=== PATIENT | male | born 1970 | race Caucasian/White ===

== ENCOUNTER 2016-08-03 20:46 | Emergency (ER) | payer MEDICAID ==
[~2016-08-03] VITALS: Ht 172.7 cm; Wt 181.4 kg
[2016-08-03 22:42] LABS: Basophils # (auto) 0 uL; Basophils % (auto) 0.3 % (0.0-2.0); DEFINITIVE VIEW TRANSMISSION; Eosinophils # (auto) 0 uL; Eosinophils % (auto) 0.3 % (0.0-7.0); Hematocrit 45.4 % (41.0-53.0); Hemoglobin 13.9 g/dL (13.5-17.5); Lymphocytes # (auto) 1.6 uL; Mean Corpuscular Hemoglobin 21.5 pg (28.0-32.0); Mean Corpuscular Hgb Conc. 30.5 g/dL (32.0-36.0); Mean Corpuscular Volume 70.5 fL (80.0-100.0); Mean Platelet Volume 10.8 fL (7.4-10.4); Monocytes % (auto) 9.5 % (0.0-12.0); Neutrophils # (auto) 7.9 uL; Neutrophils % (auto) 74.9 % (37.0-80.0); Platelet Count (auto) 340 10^3/uL (140-450); Red Cell Distribution Width 18.9 % (11.6-16.0); White Blood Cell 10.6 10^3/uL (4.4-10.8)
[2016-08-03 22:58] LABS: Albumin 3.2 g/dL (3.4-5.0); Alkaline Phosphatase 153 U/L (45-117); Anion Gap 10 (5-15); Aspartate Aminotransferase < 3 U/L (15-37); BUN/Creatinine Ratio 15.7; Bilirubin, Total 0.3 mg/dL (0.2-1.0); Blood Urea Nitrogen 11 mg/dL (7-18); Calcium 8.5 mg/dL (8.5-10.1); Carbon Dioxide 25 mmol/L (21-32); Chloride 109 mmol/L (98-107); GFR African American 156 mL/min; GFR Non-African American 129 mL/min; Glucose 103 mg/dL (74-106); Magnesium 2.2 mg/dL (1.6-2.6); Potassium 3.5 mmol/L (3.5-5.1); Sodium 144 mmol/L (136-145); Total Protein 7.8 g/dL (6.4-8.2)
[2016-08-03 23:01] LABS: INR 1.05 (0.9-1.15); Partial Thromboplastin Time 27.8 sec (22.64-33.71); Prothrombin Time 10.8 sec (9.37-12.3)
[2016-08-03 23:11] LABS: B-Type Natriuretic Peptide 7.95 pg/mL (0-100)
[2016-08-03 23:12] LABS: Temperature: 22.3 C (20.0-25.0)
[2016-08-03 23:23] LABS: Anisocytosis Slight; Platelet Estimate Adequate
[2016-08-03 23:24] LABS: Hypochromia Slight
[2016-08-04] MEDS ORDERED: HYDROcodone-ACET 10/325MG TAB PO ONE (00:30)
[2016-08-04] MEDS ORDERED: LEVOFLOXACIN 500 MG TAB PO ONE (00:30)
[2016-08-04] MEDS ORDERED: traMADol HCL 50 MG TAB PO ONE (01:00)
[2016-08-04 02:15] VITALS: BP 128/84
== END 2016-08-04 02:20 | disposition home or self-care (01) ==
LOC: ER 21:07
DX: R07.89 Other chest pain (principal); J06.9 Acute upper respiratory infection, unspecified; L89.329 Pressure ulcer of left buttock, unspecified stage; L89.319 Pressure ulcer of right buttock, unspecified stage; E11.9 Type 2 diabetes mellitus without complications; I10 Essential (primary) hypertension; F17.210 Nicotine dependence, cigarettes, uncomplicated; Z88.2 Allergy status to sulfonamides; Z88.6 Allergy status to analgesic agent; Z88.8 Allergy status to other drugs, medicaments and biological substances; Z79.1 Long term (current) use of non-steroidal anti-inflammatories (NSAID)
CPT/HCPCS: 36415; 71010; 80053; 83735; 83880; 84484; 85025; 85379; 85610; 85730; 87040; 87070; 87077; 87186; 93005; 94761

== ENCOUNTER 2016-12-26 07:32 | Inpatient (IN) | payer MEDICAID ==
[~2016-12-26] VITALS: Ht 172.7 cm; Wt 156.5 kg
[2016-12-26 08:50] LABS: Urine Bilirubin Negative (Negative); Urine Color Yellow (Yellow); Urine Glucose Normal (Normal); Urine Ketone Negative (Negative); Urine Mucus FEW (None Seen); Urine RBC 22 /hpf (0 - 3); Urine Squamous Epithelial Cell MOD /hpf (<5); Urine Urobilinogen Normal (Negative); Urine WBC Clumps PRESENT /hpf (None Seen)
[2016-12-26 08:51] LABS: Urine Blood 1+ /uL (Negative); Urine Nitrite POSITIVE (Negative)
[2016-12-26] MEDS ORDERED: SODIUM CHLORIDE 0.9% 1,000 ML IV ONE ×2 (09:06)
[2016-12-26] MEDS ORDERED: ONDANSETRON HCL 4 MG/2 ML VIAL IV ONE (09:15)
[2016-12-26] MEDS ORDERED: MORPHINE SULFATE 4 MG/ML SYRG IV ONE (09:15)
[2016-12-26] MEDS ORDERED: LEVOFLOXACIN 750MG 150 ML IV ONE (09:15)
[2016-12-26 09:22] LABS: Basophils # (auto) 0 uL; Basophils % (auto) 0.3 % (0.0-2.0); DEFINITIVE VIEW TRANSMISSION; Eosinophils # (auto) 0 uL; Eosinophils % (auto) 0.1 % (0.0-7.0); Hemoglobin 14.4 g/dL (13.5-17.5); Lymphocytes % (auto) 7.4 % (10.0-50.0); Mean Corpuscular Hemoglobin 21.3 pg (28.0-32.0); Mean Corpuscular Hgb Conc. 31.4 g/dL (32.0-36.0); Mean Corpuscular Volume 67.8 fL (80.0-100.0); Mean Platelet Volume 9.6 fL (7.4-10.4); Monocytes # (auto) 0.7 uL; Monocytes % (auto) 5.2 % (0.0-12.0); Neutrophils # (auto) 11.8 uL; Platelet Count (auto) 300 10^3/uL (140-450); Red Cell Distribution Width 19.6 % (11.6-16.0); White Blood Cell 13.6 10^3/uL (4.4-10.8)
[2016-12-26 09:39] LABS: Albumin 3.3 g/dL (3.4-5.0); Calcium 8.5 mg/dL (8.5-10.1); Potassium 4.3 mmol/L (3.5-5.1)
[2016-12-26 09:43] LABS: Bilirubin, Total 0.3 mg/dL (0.2-1.0); Total Protein 7.9 g/dL (6.4-8.2)
[2016-12-26 10:04] LABS: Platelet Estimate Adequate
[2016-12-26 10:05] LABS: Anisocytosis Slight; Hypochromia Slight
[2016-12-26 10:06] LABS: Microcytosis Slight
[2016-12-26] MEDS ORDERED: HYDROmorphone HCL 2 MG/ML VL IV ONE (12:00)
[2016-12-26] MEDS ORDERED: GASTROGRAFIN 120 ML SOL ONE (12:19)
[2016-12-26] MEDS ORDERED: FAMOTIDINE (10MG/ML) 2ML VL IV ONE (13:45)
[2016-12-26] MEDS ORDERED: ONDANSETRON HCL 4 MG/2 ML VIAL IV PRN (13:45)
[2016-12-26] MEDS ORDERED: metroNIDAZOLE 500MG/100ML 100 ML IV ONE (13:45)
[2016-12-26] MEDS: SODIUM CHLORIDE 0.9% 1,000 ML IV SCH ×2 (13:57→22:02)
[2016-12-26 15:13] LABS: INR 1.02 (0.9-1.15); Prothrombin Time 11.1 sec (9.37-12.3)
[2016-12-26] MEDS: HYDROmorphone HCL 2 MG/ML VL IV PRN ×2 (16:33→20:36)
[2016-12-26 17:22] VITALS: BP 134/79
[2016-12-26 18:09] VITALS: BP 134/79
[2016-12-26 20:00] VITALS: BP 124/63
[2016-12-26] MEDS: metroNIDAZOLE 500MG/100ML 100 ML IV SCH (20:17)
[2016-12-26 22:00] VITALS: BP 124/63
[2016-12-27] VITALS (7 sets, daily range): BP systolic 116–151; BP diastolic 64–79
[2016-12-27] MEDS: metroNIDAZOLE 500MG/100ML 100 ML IV SCH ×4 (02:03→20:41)
[2016-12-27] MEDS: HYDROmorphone HCL 2 MG/ML VL IV PRN ×5 (03:38→22:30)
[2016-12-27] MEDS ORDERED: HYDR2TAB29 PO (03:43)
[2016-12-27] MEDS ORDERED: TIZA2TAB3 PO (03:43)
[2016-12-27] MEDS ORDERED: OXYC15TA77 PO (03:43)
[2016-12-27] MEDS ORDERED: ESOM40CA39 PO (03:44)
[2016-12-27] MEDS: SODIUM CHLORIDE 0.9% 1,000 ML IV SCH ×2 (06:22→14:32)
[2016-12-27] MEDS: FAMOTIDINE (10MG/ML) 2ML VL IV SCH (09:01)
[2016-12-27 10:39] LABS: Basophils # (auto) 0 uL; Basophils % (auto) 0.4 % (0.0-2.0); DEFINITIVE VIEW TRANSMISSION; Eosinophils # (auto) 0.1 uL; Eosinophils % (auto) 1.4 % (0.0-7.0); Hemoglobin 12.9 g/dL (13.5-17.5); Lymphocytes # (auto) 1.4 uL; Lymphocytes % (auto) 21.9 % (10.0-50.0); Mean Corpuscular Hemoglobin 21.1 pg (28.0-32.0); Mean Corpuscular Hgb Conc. 30.7 g/dL (32.0-36.0); Mean Corpuscular Volume 68.6 fL (80.0-100.0); Mean Platelet Volume 11.2 fL (7.4-10.4); Monocytes # (auto) 0.5 uL; Monocytes % (auto) 7.8 % (0.0-12.0); Neutrophils # (auto) 4.4 uL; Neutrophils % (auto) 68.5 % (37.0-80.0); Platelet Count (auto) 300 10^3/uL (140-450); Red Cell Distribution Width 18.8 % (11.6-16.0); White Blood Cell 6.4 10^3/uL (4.4-10.8)
[2016-12-27 11:04] LABS: Platelet Estimate Adequate
[2016-12-27 11:05] LABS: Anisocytosis Slight; Hypochromia Moderate; Microcytosis Slight
[2016-12-27] MEDS: LEVOFLOXACIN 500MG 100 ML IV SCH (11:16)
[2016-12-27 11:22] LABS: Albumin 2.9 g/dL (3.4-5.0); BUN/Creatinine Ratio 23.8; Bilirubin, Total 0.5 mg/dL (0.2-1.0); Calcium 7.8 mg/dL (8.5-10.1); Potassium 3.9 mmol/L (3.5-5.1); Total Protein 6.6 g/dL (6.4-8.2)
[2016-12-28] MEDS: metroNIDAZOLE 500MG/100ML 100 ML IV SCH ×2 (02:25→08:07)
[2016-12-28] MEDS: SODIUM CHLORIDE 0.9% 1,000 ML IV SCH ×3 (02:25→15:42)
[2016-12-28] MEDS: HYDROmorphone HCL 2 MG/ML VL IV PRN ×5 (02:39→21:30)
[2016-12-28 05:22] VITALS: BP 127/75
[2016-12-28 07:03] LABS: Basophils # (auto) 0 uL; Basophils % (auto) 0.5 % (0.0-2.0); DEFINITIVE VIEW TRANSMISSION; Eosinophils # (auto) 0.1 uL; Eosinophils % (auto) 1.8 % (0.0-7.0); Hematocrit 41.5 % (41.0-53.0); Hemoglobin 12.5 g/dL (13.5-17.5); Lymphocytes # (auto) 1.2 uL; Lymphocytes % (auto) 17.3 % (10.0-50.0); Mean Corpuscular Hemoglobin 20.8 pg (28.0-32.0); Mean Corpuscular Hgb Conc. 30.1 g/dL (32.0-36.0); Mean Platelet Volume 10.6 fL (7.4-10.4); Monocytes # (auto) 0.6 uL; Monocytes % (auto) 8.3 % (0.0-12.0); Neutrophils # (auto) 4.9 uL; Neutrophils % (auto) 72.1 % (37.0-80.0); Platelet Count (auto) 258 10^3/uL (140-450); Red Cell Distribution Width 19.1 % (11.6-16.0); White Blood Cell 6.8 10^3/uL (4.4-10.8)
[2016-12-28 07:48] LABS: BUN/Creatinine Ratio 26.3; Calcium 7.7 mg/dL (8.5-10.1); Potassium 3.6 mmol/L (3.5-5.1)
[2016-12-28 08:00] VITALS: BP 156/78
[2016-12-28 08:41] LABS: Anisocytosis Slight; Burr Cells FEW; Hypochromia Moderate; Microcytosis Marked; Ovalocytes FEW; Platelet Estimate Adequate
[2016-12-28 08:53] VITALS: BP 153/78
[2016-12-28] MEDS: LEVOFLOXACIN 500MG 100 ML IV SCH (10:33)
[2016-12-28] MEDS: FAMOTIDINE (10MG/ML) 2ML VL IV SCH (10:34)
[2016-12-28] MEDS: cefTRIAXone 1GM/50ML D5W 50 ML IV SCH (12:41)
[2016-12-28 13:00] VITALS: BP 140/78
[2016-12-28 17:00] VITALS: BP 131/76
[2016-12-28 22:00] VITALS: BP 138/70
[2016-12-29] MEDS: SODIUM CHLORIDE 0.9% 1,000 ML IV SCH ×2 (01:30→08:22)
[2016-12-29] MEDS: HYDROmorphone HCL 2 MG/ML VL IV PRN ×6 (01:30→22:34)
[2016-12-29 04:49] VITALS: BP 128/64
[2016-12-29 05:57] LABS: Basophils # (auto) 0 uL; Basophils % (auto) 0.4 % (0.0-2.0); DEFINITIVE VIEW TRANSMISSION; Eosinophils # (auto) 0.2 uL; Eosinophils % (auto) 2.7 % (0.0-7.0); Hematocrit 38.8 % (41.0-53.0); Hemoglobin 11.9 g/dL (13.5-17.5); Lymphocytes # (auto) 1.3 uL; Lymphocytes % (auto) 20.6 % (10.0-50.0); Mean Corpuscular Hgb Conc. 30.7 g/dL (32.0-36.0); Mean Corpuscular Volume 68.4 fL (80.0-100.0); Mean Platelet Volume 9.6 fL (7.4-10.4); Monocytes # (auto) 0.8 uL; Monocytes % (auto) 13.1 % (0.0-12.0); Neutrophils % (auto) 63.2 % (37.0-80.0); Platelet Count (auto) 231 10^3/uL (140-450); Red Cell Distribution Width 18.9 % (11.6-16.0); White Blood Cell 6.4 10^3/uL (4.4-10.8)
[2016-12-29 06:09] LABS: Potassium 3.3 mmol/L (3.5-5.1)
[2016-12-29 06:14] LABS: BUN/Creatinine Ratio 25.6; Calcium 7.3 mg/dL (8.5-10.1)
[2016-12-29 09:01] VITALS: BP 125/63
[2016-12-29] MEDS: FAMOTIDINE (10MG/ML) 2ML VL IV SCH (09:28)
[2016-12-29] MEDS: cefTRIAXone 1GM/50ML D5W 50 ML IV SCH (09:28)
[2016-12-29 12:35] VITALS: BP 128/76
[2016-12-29] MEDS: NITROFURANTOIN (MONO) 100 mg CAP PO SCH ×2 (16:53→22:16)
[2016-12-29 17:00] VITALS: BP 117/69
[2016-12-29 21:48] VITALS: BP 150/92
[2016-12-30 05:05] VITALS: BP 137/73
[2016-12-30] MEDS: HYDROmorphone HCL 2 MG/ML VL IV PRN ×4 (05:19→19:46)
[2016-12-30 09:00] VITALS: BP 128/68
[2016-12-30] MEDS: FAMOTIDINE (10MG/ML) 2ML VL IV SCH (09:21)
[2016-12-30] MEDS: NITROFURANTOIN (MONO) 100 mg CAP PO SCH ×2 (09:21→21:16)
[2016-12-30 13:00] VITALS: BP 132/70
[2016-12-30] MEDS: cefTRIAXone 1GM/50ML D5W 50 ML IV SCH (13:19)
[2016-12-30] MEDS: SODIUM CHLORIDE 0.9% 1,000 ML IV SCH (13:53)
[2016-12-30] MEDS ORDERED: NITR-48 PO (14:28)
[2016-12-30] MEDS ORDERED: CEFT1INJ6 IM (14:28)
[2016-12-30 15:15] VITALS: BP 128/68
[2016-12-30 16:58] VITALS: BP 147/99
[2016-12-30 22:25] VITALS: BP 151/83
[2016-12-31] MEDS: HYDROmorphone HCL 2 MG/ML VL IV PRN ×6 (00:06→20:43)
[2016-12-31] MEDS: SODIUM CHLORIDE 0.9% 1,000 ML IV SCH ×2 (03:02→16:22)
[2016-12-31 05:04] VITALS: BP 127/70
[2016-12-31 08:45] VITALS: BP 127/86
[2016-12-31] MEDS: FAMOTIDINE (10MG/ML) 2ML VL IV SCH (09:12)
[2016-12-31] MEDS: NITROFURANTOIN (MONO) 100 mg CAP PO SCH ×2 (09:12→23:02)
[2016-12-31] MEDS: cefTRIAXone 1GM/50ML D5W 50 ML IV SCH (11:24)
[2016-12-31 12:47] VITALS: BP 151/88
[2016-12-31 16:36] VITALS: BP 125/76
[2016-12-31 22:03] VITALS: BP 140/80
[2017-01-01] MEDS: HYDROmorphone HCL 2 MG/ML VL IV PRN ×3 (00:09→08:48)
[2017-01-01 04:45] VITALS: BP 119/88
[2017-01-01] MEDS: SODIUM CHLORIDE 0.9% 1,000 ML IV SCH (05:47)
[2017-01-01 08:06] VITALS: BP 134/71
[2017-01-01] MEDS: NITROFURANTOIN (MONO) 100 mg CAP PO SCH (09:25)
[2017-01-01] MEDS: FAMOTIDINE (10MG/ML) 2ML VL IV SCH (09:25)
[2017-01-01] MEDS: cefTRIAXone 1GM/50ML D5W 50 ML IV SCH (11:24)
[2017-01-01 12:48] VITALS: BP 130/73
== END 2017-01-01 12:55 | disposition home health service (06) | DRG 247 ==
LOC: EDBD 07:32 → ER 07:38 → OVERFLOW 07:39 → WEST WING 15:38
PROVIDERS: ADMIT Internal Medicine; ATTEND Nurse Practitioner Acute Care
DX: K56.60 Unspecified intestinal obstruction (principal); N39.0 Urinary tract infection, site not specified; I10 Essential (primary) hypertension; E11.9 Type 2 diabetes mellitus without complications; B95.2 Enterococcus as the cause of diseases classified elsewhere; Q05.9 Spina bifida, unspecified; E66.01 Morbid (severe) obesity due to excess calories; G89.29 Other chronic pain; B96.4 Proteus (mirabilis) (morganii) as the cause of diseases classified elsewhere; B96.89 Other specified bacterial agents as the cause of diseases classified elsewhere; K42.9 Umbilical hernia without obstruction or gangrene; F17.210 Nicotine dependence, cigarettes, uncomplicated; K43.5 Parastomal hernia without obstruction or gangrene; Z82.49 Family history of ischemic heart disease and other diseases of the circulatory system; Z89.511 Acquired absence of right leg below knee; Z89.512 Acquired absence of left leg below knee; Z93.3 Colostomy status; Z98.2 Presence of cerebrospinal fluid drainage device; Z93.2 Ileostomy status; Z68.43 Body mass index [BMI] 50.0-59.9, adult; Z88.6 Allergy status to analgesic agent; Z88.1 Allergy status to other antibiotic agents; Z88.5 Allergy status to narcotic agent; Z88.0 Allergy status to penicillin
CPT/HCPCS: 36415; 71010; 74176; 74250; 80048; 80053; 81001; 83605; 85025; 85610; 87040; 87086; 87088; 87186; 96361; 96365; 96367; 96375; J0696; J1956; J2405; J3490

== ENCOUNTER 2017-03-12 22:36 | Inpatient (IN) | payer MEDICAID ==
[~2017-03-12] VITALS: Ht 160 cm; Wt 160.8 kg
[~2017-03-12 22:36] MED LIST: CEFT1INJ6 IM; ESOM40CA39 PO; HYDR2TAB29 PO; NITR-48 PO; OXYC15TA77 PO; TIZA2TAB3 PO
[2017-03-12 23:31] LABS: Basophils # (auto) 0.1 uL; Basophils % (auto) 0.3 % (0.0-2.0); CONDITION Y; DEFINITIVE SEE PRINTOUT; Eosinophils # (auto) 0 uL; Eosinophils % (auto) 0.3 % (0.0-7.0); Hematocrit 45.1 % (41.0-53.0); Hemoglobin 13.8 g/dL (13.5-17.5); Lymphocytes # (auto) 1.3 uL; Lymphocytes % (auto) 8.6 % (10.0-50.0); Mean Corpuscular Hemoglobin 21.2 pg (28.0-32.0); Mean Corpuscular Hgb Conc. 30.6 g/dL (32.0-36.0); Mean Corpuscular Volume 69.3 fL (80.0-100.0); Mean Platelet Volume 9.2 fL (7.4-10.4); Monocytes # (auto) 1.4 uL; Neutrophils # (auto) 12.8 uL; Neutrophils % (auto) 81.8 % (37.0-80.0); Platelet Count (auto) 317 10^3/uL (140-450); White Blood Cell 15.6 10^3/uL (4.4-10.8)
[2017-03-12 23:48] LABS: Albumin 3.3 g/dL (3.4-5.0); BUN/Creatinine Ratio 17.7; Calcium 8.4 mg/dL (8.5-10.1); Potassium 3.7 mmol/L (3.5-5.1)
[2017-03-12 23:51] LABS: Bilirubin, Total 0.4 mg/dL (0.2-1.0); Total Protein 8.1 g/dL (6.4-8.2)
[2017-03-13] MEDS ORDERED: ALBUTEROL SULF 2.5 MG/0.5ML(0.5%) NEB SOLN NEB ONE
[2017-03-13] MEDS ORDERED: IPRATROPIUM BROM 0.5 MG/2.5ML INH SOL NEB ONE
[2017-03-13] MEDS ORDERED: ONDANSETRON HCL 4 MG/2 ML VIAL IV ONE
[2017-03-13 00:32] LABS: Magnesium 2.5 mg/dL (1.6-2.6)
[2017-03-13 00:40] LABS: Allen Test Modified; Base Excess 1.7 mmol/L (-2.0-2.0); Blood 02Sat 96.4 % (96-100); Blood COHb 5.5 % (0.5-1.5); Blood MetHb 0.3 % (0.0-1.5); HCO3 26.7 mmol/L (22-26.0); HHb 3.4 % (0.0-5.0); MODE NASAL CANNULA; O2Hb 90.8 % (94.0-97.0); PCO2 43.3 mmHg (35.0-45.0); PCO2(T) 43.3 mmHg (35.0-45.0); PO2 88.7 mmHg (80.0-100.0); PO2(T) 88.7 mmHg (80.0-100.0); Sample Type Arterial; pH 7.408 (7.350-7.450)
[2017-03-13 00:55] LABS: B-Type Natriuretic Peptide 7.1 pg/mL (0-100)
[2017-03-13 01:26] LABS: Platelet Estimate Adequate
[2017-03-13 01:27] LABS: Anisocytosis Moderate; Microcytosis Marked; Ovalocytes FEW
[2017-03-13 01:28] LABS: Hypersegmented Neutrophils Present
[2017-03-13 02:22] LABS: Urine Bilirubin Negative (Negative); Urine Blood 2+ /uL (Negative); Urine Color Yellow (Yellow); Urine Glucose Normal (Normal); Urine Ketone Negative (Negative); Urine Mucus FEW (None Seen); Urine Nitrite POSITIVE (Negative); Urine RBC 39 /hpf (0 - 3); Urine Squamous Epithelial Cell FEW /hpf (<5); Urine Urobilinogen Normal (Negative); Urine WBC Clumps PRESENT /hpf (None Seen); Urine pH 6.5 (5.0-8.0)
[2017-03-13] MEDS ORDERED: HYDROmorphone HCL 2 MG/ML VL IV ONE ×3 (03:30→08:00)
[2017-03-13] MEDS ORDERED: TEMAZEPAM 15 MG CAP PO PRN (08:15)
[2017-03-13] MEDS ORDERED: MORPHINE SULF INJ 2 MG/ML SYRINGE 1ML IV PRN (08:15)
[2017-03-13] MEDS ORDERED: LORazepam 0.5 MG TAB PO PRN (08:15)
[2017-03-13] MEDS ORDERED: cefTRIAXone 1GM/50ML D5W 50 ML IV ONE (08:15)
[2017-03-13 09:12] LABS: Basophils # (auto) 0.1 uL; Basophils % (auto) 0.4 % (0.0-2.0); CONDITION Y; DEFINITIVE SEE PRINTOUT; Eosinophils # (auto) 0 uL; Eosinophils % (auto) 0.3 % (0.0-7.0); Hematocrit 41.2 % (41.0-53.0); Hemoglobin 12.5 g/dL (13.5-17.5); Lymphocytes # (auto) 1.3 uL; Lymphocytes % (auto) 10.1 % (10.0-50.0); Mean Corpuscular Hemoglobin 21.1 pg (28.0-32.0); Mean Corpuscular Hgb Conc. 30.5 g/dL (32.0-36.0); Mean Corpuscular Volume 69.4 fL (80.0-100.0); Mean Platelet Volume 9.2 fL (7.4-10.4); Monocytes # (auto) 1.5 uL; Monocytes % (auto) 11.6 % (0.0-12.0); Neutrophils # (auto) 9.7 uL; Neutrophils % (auto) 77.6 % (37.0-80.0); Platelet Count (auto) 279 10^3/uL (140-450); White Blood Cell 12.6 10^3/uL (4.4-10.8)
[2017-03-13] MEDS ORDERED: AZITHROMYCIN 500MG/D5W 250ML 250 ML IV ONE (09:15)
[2017-03-13 09:16] LABS: Red Cell Distribution Width 21.9 % (11.6-16.0)
[2017-03-13] MEDS: FAMOTIDINE 20 MG TAB PO SCH (10:00)
[2017-03-13 10:45] VITALS: BP 114/65
[2017-03-13 11:17] LABS: Anisocytosis Slight; Hypochromia Moderate; Large Platelets FEW; Platelet Estimate Adequate
[2017-03-13] MEDS: ONDANSETRON HCL 4 MG/2 ML VIAL IV PRN (11:58)
[2017-03-13 12:30] VITALS: BP 114/76
[2017-03-13 13:38] VITALS: BP 114/76
[2017-03-13] MEDS ORDERED: KETOROLAC TROMETH 30 MG/ML 1ML VIAL IV ONE (13:45)
[2017-03-13] MEDS ORDERED: HYDROmorphone HCL 2 MG TAB PO SCH (14:00)
[2017-03-13 14:21] VITALS: BP 114/76
[2017-03-13] MEDS: SODIUM CHLORIDE 0.9% 1,000 ML IV SCH (15:58)
[2017-03-13 16:23] VITALS: BP 145/83
[2017-03-13] MEDS: HYDROmorphone HCL 2 MG TAB PO PRN (18:47)
[2017-03-13] MEDS: ALBUTEROL SULF 2.5 MG/0.5ML(0.5%) NEB SOLN NEB SCH (19:39)
[2017-03-13] MEDS: IPRATROPIUM BROM 0.5 MG/2.5ML INH SOL NEB SCH (19:39)
[2017-03-13 22:00] VITALS: BP 116/48
[2017-03-14] MEDS: SODIUM CHLORIDE 0.9% 1,000 ML IV SCH (03:05)
[2017-03-14] MEDS: HYDROmorphone HCL 2 MG TAB PO PRN ×4 (04:19→23:15)
[2017-03-14 05:00] VITALS: BP 124/68
[2017-03-14] MEDS: IPRATROPIUM BROM 0.5 MG/2.5ML INH SOL NEB SCH ×4 (06:38→19:43)
[2017-03-14] MEDS: ALBUTEROL SULF 2.5 MG/0.5ML(0.5%) NEB SOLN NEB SCH ×4 (06:38→19:43)
[2017-03-14 06:47] LABS: Basophils # (auto) 0 uL; Basophils % (auto) 0.2 % (0.0-2.0); CONDITION Y; DEFINITIVE SEE PRINTOUT; Eosinophils # (auto) 0.2 uL; Eosinophils % (auto) 1.8 % (0.0-7.0); Hematocrit 42.1 % (41.0-53.0); Hemoglobin 13.2 g/dL (13.5-17.5); Lymphocytes # (auto) 1.5 uL; Lymphocytes % (auto) 17.2 % (10.0-50.0); Mean Corpuscular Hemoglobin 21.8 pg (28.0-32.0); Mean Corpuscular Hgb Conc. 31.4 g/dL (32.0-36.0); Mean Corpuscular Volume 69.4 fL (80.0-100.0); Mean Platelet Volume 9.5 fL (7.4-10.4); Monocytes % (auto) 10.9 % (0.0-12.0); Neutrophils # (auto) 6.3 uL; Neutrophils % (auto) 69.9 % (37.0-80.0); Platelet Count (auto) 277 10^3/uL (140-450); White Blood Cell 8.9 10^3/uL (4.4-10.8)
[2017-03-14 07:11] LABS: Potassium 3.6 mmol/L (3.5-5.1)
[2017-03-14 07:19] LABS: BUN/Creatinine Ratio 20.4; Calcium 7.9 mg/dL (8.5-10.1)
[2017-03-14 07:54] LABS: Anisocytosis Slight; Hypochromia Slight; Platelet Estimate Adequate
[2017-03-14 09:00] VITALS: BP 118/56
[2017-03-14] MEDS: cefTRIAXone 1GM/50ML D5W 50 ML IV SCH (09:41)
[2017-03-14] MEDS: FAMOTIDINE 20 MG TAB PO SCH (09:42)
[2017-03-14] MEDS: AZITHROMYCIN 500MG/D5W 250ML 250 ML IV SCH (10:53)
[2017-03-14] MEDS ORDERED: FUROSEMIDE 40 MG/4 ML VIAL IV ONE (12:00)
[2017-03-14] MEDS ORDERED: POTASSIUM CHL 20 Meq TABLET PO ONE (12:00)
[2017-03-14] MEDS: ENOXAPARIN SOD 40 MG/0.4 ML SYRINGE SC ONE ×2 (12:00→12:34)
[2017-03-14 12:57] VITALS: BP 124/79
[2017-03-14] MEDS: MORPHINE SULF INJ 2 MG/ML SYRINGE 1ML IV PRN ×2 (14:57→20:41)
[2017-03-14 16:33] VITALS: BP 107/58
[2017-03-14 22:00] VITALS: BP 108/55
[2017-03-15] MEDS: ALBUTEROL SULF 2.5 MG/0.5ML(0.5%) NEB SOLN NEB SCH ×3 (01:24→12:11)
[2017-03-15] MEDS: IPRATROPIUM BROM 0.5 MG/2.5ML INH SOL NEB SCH ×3 (01:24→12:11)
[2017-03-15] MEDS: ONDANSETRON HCL 4 MG/2 ML VIAL IV PRN ×3 (03:24→13:42)
[2017-03-15] MEDS: MORPHINE SULF INJ 2 MG/ML SYRINGE 1ML IV PRN ×3 (03:24→13:42)
[2017-03-15 06:00] VITALS: BP 120/64
[2017-03-15] MEDS: HYDROmorphone HCL 2 MG TAB PO PRN ×3 (06:53→18:35)
[2017-03-15 07:24] LABS: BUN/Creatinine Ratio 20.6; Calcium 7.6 mg/dL (8.5-10.1); Potassium 3.7 mmol/L (3.5-5.1)
[2017-03-15 08:00] VITALS: BP 104/49
[2017-03-15 08:30] VITALS: BP 104/49
[2017-03-15] MEDS: cefTRIAXone 1GM/50ML D5W 50 ML IV SCH (09:21)
[2017-03-15] MEDS: FAMOTIDINE 20 MG TAB PO SCH (09:22)
[2017-03-15] MEDS ORDERED: ENOXAPARIN SOD 40 MG/0.4 ML SYRINGE SC SCH (10:00)
[2017-03-15] MEDS: AZITHROMYCIN 500MG/D5W 250ML 250 ML IV SCH (10:30)
[2017-03-15 12:30] VITALS: BP 110/91
[2017-03-15 15:24] LABS: Allen Test Yes; Blood 02Sat 90.1 % (96-100); Blood COHb 0.5 % (0.5-1.5); Blood MetHb 0.3 % (0.0-1.5); HCO3 29.9 mmol/L (22-26.0); HHb 9.8 % (0.0-5.0); MODE ROOM AIR; O2Hb 89.4 % (94.0-97.0); PO2 61.7 mmHg (80.0-100.0); PO2(T) 61.7 mmHg (80.0-100.0); Sample Type Arterial; pH 7.394 (7.350-7.450)
[2017-03-15 16:17] VITALS: BP 122/57
[2017-03-15 16:29] VITALS: BP 122/57
== END 2017-03-15 19:45 | disposition home or self-care (01) | DRG 720 ==
LOC: EDBD 22:36 → ER 22:36 → OVERFLOW 22:37 → WEST WING 03-13 09:25
PROVIDERS: ADMIT Nurse Practitioner Family; ATTEND Internal Medicine
DX: A41.9 Sepsis, unspecified organism (principal); J96.20 Acute and chronic respiratory failure, unspecified whether with hypoxia or hypercapnia; J18.9 Pneumonia, unspecified organism; I11.9 Hypertensive heart disease without heart failure; Z68.44 Body mass index [BMI] 60.0-69.9, adult; E44.1 Mild protein-calorie malnutrition; N12 Tubulo-interstitial nephritis, not specified as acute or chronic; E11.65 Type 2 diabetes mellitus with hyperglycemia; E66.01 Morbid (severe) obesity due to excess calories; N31.9 Neuromuscular dysfunction of bladder, unspecified; F17.210 Nicotine dependence, cigarettes, uncomplicated; Z60.2 Problems related to living alone; G89.4 Chronic pain syndrome; N40.0 Benign prostatic hyperplasia without lower urinary tract symptoms; Q05.9 Spina bifida, unspecified; Z82.49 Family history of ischemic heart disease and other diseases of the circulatory system; Z93.3 Colostomy status; Z98.2 Presence of cerebrospinal fluid drainage device; Z88.5 Allergy status to narcotic agent; Z89.511 Acquired absence of right leg below knee; Z89.512 Acquired absence of left leg below knee; Z88.2 Allergy status to sulfonamides; Z88.1 Allergy status to other antibiotic agents; Z93.2 Ileostomy status
CPT/HCPCS: 36415; 36600; 71010; 80048; 80053; 81001; 82805; 83036; 83605; 83735; 83880; 84484; 85025; 87040; 87081; 87086; 87088; 87186; 93005; 94640; 94761; 96365; 96375; 96376; J0696; J1885; J2405

== ENCOUNTER 2017-04-17 19:07 | Inpatient (IN) | payer MEDICAID ==
[~2017-04-17] VITALS: Ht 152.4 cm; Wt 159.4 kg
[~2017-04-17 19:07] MED LIST changes: -OXYC15TA77 PO
[2017-04-17] MEDS ORDERED: KETOROLAC TROMETH 30 MG/ML 1ML VIAL IV ONE (19:15)
[2017-04-17] MEDS ORDERED: HYDROmorphone HCL 2 MG/ML VL IV ONE ×3 (19:15→23:45)
[2017-04-17] MEDS ORDERED: ONDANSETRON HCL 4 MG/2 ML VIAL IV ONE (19:15)
[2017-04-17 20:03] LABS: Basophils # (auto) 0 uL; Basophils % (auto) 0.5 % (0.0-2.0); Eosinophils # (auto) 0.1 uL; Eosinophils % (auto) 0.9 % (0.0-7.0); Hematocrit 43.9 % (41.0-53.0); Hemoglobin 13.4 g/dL (13.5-17.5); Lymphocytes # (auto) 1.6 uL; Lymphocytes % (auto) 22.1 % (10.0-50.0); Mean Corpuscular Hemoglobin 21.2 pg (28.0-32.0); Mean Corpuscular Hgb Conc. 30.5 g/dL (32.0-36.0); Mean Corpuscular Volume 69.3 fL (80.0-100.0); Mean Platelet Volume 10.2 fL (6.9-10.8); Monocytes # (auto) 0.9 uL; Monocytes % (auto) 12.9 % (0.0-12.0); Neutrophils # (auto) 4.6 uL; Neutrophils % (auto) 63.6 % (37.0-80.0); Platelet Count (auto) 222 10^3/uL (140-450); Red Cell Distribution Width 19.2 % (11.8-14.3); White Blood Cell 7.2 10^3/uL (4.4-10.8)
[2017-04-17 20:08] LABS: INR 1.05 (0.9-1.15); Partial Thromboplastin Time 28.4 sec (22.64-33.71); Prothrombin Time 11.4 sec (9.37-12.3)
[2017-04-17 20:11] LABS: Albumin 3.3 g/dL (3.4-5.0); BUN/Creatinine Ratio 24.1; Bilirubin, Total 0.3 mg/dL (0.2-1.0); Calcium 7.9 mg/dL (8.5-10.1); Magnesium 2.2 mg/dL (1.6-2.6); Potassium 3.9 mmol/L (3.5-5.1); Total Protein 7.6 g/dL (6.4-8.2)
[2017-04-17 21:15] LABS: Platelet Estimate Adequate
[2017-04-17 21:16] LABS: Anisocytosis Slight; Hypochromia Moderate; Microcytosis Moderate; Ovalocytes FEW
[2017-04-17] MEDS ORDERED: SODIUM CHLORIDE 0.9% 1,000 ML IV ONE (22:15)
[2017-04-18] MEDS ORDERED: LEVOFLOXACIN 750MG 150 ML IV ONE (00:45)
[2017-04-18 01:21] LABS: Urine Bilirubin Negative (Negative); Urine Blood TRACE /uL (Negative); Urine Color Yellow (Yellow); Urine Glucose Normal (Normal); Urine Ketone TRACE (Negative); Urine Mucus FEW (None Seen); Urine Nitrite POSITIVE (Negative); Urine RBC 8 /hpf (0 - 3); Urine Squamous Epithelial Cell MOD /hpf (<5); Urine Urobilinogen Normal (Negative); Urine WBC Clumps PRESENT /hpf (None Seen); Urine pH 5.5 (5.0-8.0)
[2017-04-18] MEDS ORDERED: DEXTROSE (50%) 50ML SYRG IV PRN (02:15)
[2017-04-18] MEDS ORDERED: ONDANSETRON HCL 4 MG/2 ML VIAL IV PRN (02:15)
[2017-04-18] MEDS ORDERED: AZTREONAM 1GM INJ 1 GM in D5W 5% 50 ML IV ONE (02:15)
[2017-04-18] MEDS ORDERED: HYDROmorphone HCL 2 MG TAB PO PRN (02:45)
[2017-04-18] MEDS ORDERED: ALPRAZolam 0.5 MG TAB PO PRN (02:45)
[2017-04-18] MEDS ORDERED: VANCOMYCIN PER PHARMACY 0 MG IV SCH (02:45)
[2017-04-18] MEDS ORDERED: VANCOMYCIN 1GM/250ML D5W 250 ML IV ONE (03:00)
[2017-04-18] MEDS ORDERED: AZTREONAM 1 GM INJ VIAL ONE (03:53)
[2017-04-18] MEDS: HYDROmorphone HCL 2 MG/ML VL IV PRN ×5 (04:02→23:11)
[2017-04-18] MEDS ORDERED: ACCU-CHEK COMFORT CURVE STRIP VI SCH (07:00)
[2017-04-18] MEDS ORDERED: InsuLIN REG 1unit/0.01ml Soln (100units/ml) SC SCH (07:00)
[2017-04-18] MEDS: VANCOMYCIN 1GM/250ML D5W 250 ML IV SCH ×2 (11:19→19:28)
[2017-04-18] MEDS: AZTREONAM 1GM INJ 1 GM in D5W 5% 50 ML IV SCH ×2 (14:35→22:10)
[2017-04-18 22:36] VITALS: BP 145/90
[2017-04-19] MEDS ORDERED: VITAMINS A & D (TOPICAL) OINT 5GM TOP ONE (01:31)
[2017-04-19] MEDS: VANCOMYCIN 1GM/250ML D5W 250 ML IV SCH ×3 (03:15→19:02)
[2017-04-19] MEDS: HYDROmorphone HCL 2 MG/ML VL IV PRN ×5 (03:16→20:58)
[2017-04-19] MEDS ORDERED: ALPR1TAB2 PO (04:32)
[2017-04-19 05:17] LABS: Basophils # (auto) 0 uL; Basophils % (auto) 0.8 % (0.0-2.0); Eosinophils # (auto) 0.2 uL; Hematocrit 41.5 % (41.0-53.0); Hemoglobin 12.5 g/dL (13.5-17.5); Lymphocytes # (auto) 1.4 uL; Lymphocytes % (auto) 22.7 % (10.0-50.0); Mean Corpuscular Hemoglobin 21.1 pg (28.0-32.0); Mean Corpuscular Hgb Conc. 30.1 g/dL (32.0-36.0); Mean Platelet Volume 9.8 fL (6.9-10.8); Monocytes # (auto) 0.8 uL; Monocytes % (auto) 12.6 % (0.0-12.0); Neutrophils # (auto) 3.6 uL; Neutrophils % (auto) 60.9 % (37.0-80.0); Platelet Count (auto) 195 10^3/uL (140-450); Red Cell Distribution Width 18.5 % (11.8-14.3)
[2017-04-19 05:18] VITALS: BP 101/62
[2017-04-19 05:36] LABS: BUN/Creatinine Ratio 15.3; Calcium 7.5 mg/dL (8.5-10.1); Potassium 3.9 mmol/L (3.5-5.1)
[2017-04-19] MEDS: AZTREONAM 1GM INJ 1 GM in D5W 5% 50 ML IV SCH ×3 (06:04→21:27)
[2017-04-19 08:33] VITALS: BP 125/72
[2017-04-19 13:01] VITALS: BP 140/70
[2017-04-19] MEDS: OXYBUTYNIN CHL 5 MG TAB PO SCH ×2 (14:33→21:27)
[2017-04-19 16:18] VITALS: BP 141/58
[2017-04-19 22:00] VITALS: BP 156/68
[2017-04-20] MEDS: HYDROmorphone HCL 2 MG/ML VL IV PRN ×6 (01:28→22:41)
[2017-04-20] MEDS: VANCOMYCIN 1GM/250ML D5W 250 ML IV SCH (03:00)
[2017-04-20 05:39] VITALS: BP 128/75
[2017-04-20] MEDS: AZTREONAM 1GM INJ 1 GM in D5W 5% 50 ML IV SCH (06:09)
[2017-04-20] MEDS: OXYBUTYNIN CHL 5 MG TAB PO SCH ×3 (06:09→21:38)
[2017-04-20 09:07] VITALS: BP 133/72
[2017-04-20] MEDS ORDERED: cefTAZidime 1 GM in D5W 5% 50 ML IV ONE (09:15)
[2017-04-20] MEDS: CEFEPIME HYDROCHLORIDE 2 GM in D5W 5% 50 ML IV SCH ×2 (10:22→21:39)
[2017-04-20 13:00] VITALS: BP 132/86
[2017-04-20 16:44] VITALS: BP 124/59
[2017-04-20] MEDS ORDERED: cefTAZidime 1 GM in D5W 5% 50 ML IV SCH (17:00)
[2017-04-20 22:09] VITALS: BP 153/72
[2017-04-21] MEDS: HYDROmorphone HCL 2 MG/ML VL IV PRN ×5 (02:41→20:47)
[2017-04-21 05:17] VITALS: BP 127/75
[2017-04-21 05:21] VITALS: BP 127/75
[2017-04-21] MEDS: OXYBUTYNIN CHL 5 MG TAB PO SCH (06:00)
[2017-04-21 07:55] VITALS: BP 99/46
[2017-04-21] MEDS: CEFEPIME HYDROCHLORIDE 2 GM in D5W 5% 50 ML IV SCH ×2 (11:10→20:47)
[2017-04-21] MEDS: PHENAZOPYRIDINE HCL 100 MG TAB PO SCH ×2 (12:42→18:00)
[2017-04-21 13:00] VITALS: BP 140/73
[2017-04-21 17:12] VITALS: BP 160/83
[2017-04-21 22:00] VITALS: BP 125/91
[2017-04-22] VITALS (8 sets, daily range): BP systolic 128–158; BP diastolic 74–95
[2017-04-22] MEDS: HYDROmorphone HCL 2 MG/ML VL IV PRN ×6 (00:46→22:00)
[2017-04-22] MEDS: PHENAZOPYRIDINE HCL 100 MG TAB PO SCH ×3 (09:38→18:01)
[2017-04-22] MEDS: CEFEPIME HYDROCHLORIDE 2 GM in D5W 5% 50 ML IV SCH ×2 (11:28→21:50)
[2017-04-23] MEDS: HYDROmorphone HCL 2 MG/ML VL IV PRN ×6 (02:09→22:44)
[2017-04-23 05:09] VITALS: BP 148/81
[2017-04-23 06:11] LABS: BUN/Creatinine Ratio 36.6; Calcium 7.9 mg/dL (8.5-10.1); Potassium 3.9 mmol/L (3.5-5.1)
[2017-04-23 08:00] VITALS: BP 134/82
[2017-04-23] MEDS: PHENAZOPYRIDINE HCL 100 MG TAB PO SCH ×3 (09:14→18:36)
[2017-04-23] MEDS: CEFEPIME HYDROCHLORIDE 2 GM in D5W 5% 50 ML IV SCH ×2 (09:14→21:20)
[2017-04-23 12:00] VITALS: BP 138/88
[2017-04-23 17:00] VITALS: BP 140/79
[2017-04-23 20:00] VITALS: BP 142/72
[2017-04-23 22:00] VITALS: BP 142/72
[2017-04-24] MEDS: HYDROmorphone HCL 2 MG/ML VL IV PRN ×5 (02:38→20:32)
[2017-04-24 05:00] VITALS: BP 165/98
[2017-04-24] MEDS: PHENAZOPYRIDINE HCL 100 MG TAB PO SCH ×3 (07:56→18:18)
[2017-04-24 08:00] VITALS: BP 158/88
[2017-04-24] MEDS: CEFEPIME HYDROCHLORIDE 2 GM in D5W 5% 50 ML IV SCH ×2 (11:15→22:00)
[2017-04-24 12:00] VITALS: BP 137/79
[2017-04-24 17:00] VITALS: BP 137/80
[2017-04-24 22:00] VITALS: BP 121/88
[2017-04-25] MEDS: HYDROmorphone HCL 2 MG/ML VL IV PRN ×6 (00:53→22:33)
[2017-04-25 05:00] VITALS: BP 137/66
[2017-04-25 08:21] VITALS: BP 146/91
[2017-04-25] MEDS: PHENAZOPYRIDINE HCL 100 MG TAB PO SCH ×3 (08:37→18:03)
[2017-04-25] MEDS: CEFEPIME HYDROCHLORIDE 2 GM in D5W 5% 50 ML IV SCH ×2 (09:41→22:32)
[2017-04-25 14:36] VITALS: BP 136/67
[2017-04-25 18:18] VITALS: BP 118/69
[2017-04-25 22:00] VITALS: BP 132/75
[2017-04-26] MEDS: HYDROmorphone HCL 2 MG/ML VL IV PRN ×5 (02:02→20:43)
[2017-04-26 05:00] VITALS: BP 139/109
[2017-04-26 05:45] VITALS: BP 136/70
[2017-04-26] MEDS: PHENAZOPYRIDINE HCL 100 MG TAB PO SCH ×3 (08:05→18:48)
[2017-04-26 09:00] VITALS: BP 118/80
[2017-04-26] MEDS: CEFEPIME HYDROCHLORIDE 2 GM in D5W 5% 50 ML IV SCH ×2 (10:12→21:39)
[2017-04-26] MEDS ORDERED: KETOCONAZOLE 2 % TOPICAL CREAM 15GM TOP ONE (11:45)
[2017-04-26 12:53] VITALS: BP 128/57
[2017-04-26 16:00] VITALS: BP 140/64
[2017-04-26 16:15] LABS: Urine Bilirubin Negative (Negative); Urine Blood Negative /uL (Negative); Urine Color Brown (Yellow); Urine Glucose Normal (Normal); Urine Ketone Negative (Negative); Urine Mucus FEW (None Seen); Urine Nitrite Negative (Negative); Urine RBC 3 /hpf (0 - 3); Urine Squamous Epithelial Cell FEW /hpf (<5); Urine Urobilinogen Normal (Negative)
[2017-04-26 21:38] VITALS: BP 142/94
[2017-04-27] MEDS: HYDROmorphone HCL 2 MG/ML VL IV PRN ×4 (00:43→14:32)
[2017-04-27 05:20] VITALS: BP 145/69
[2017-04-27 09:00] VITALS: BP 133/90
[2017-04-27] MEDS: PHENAZOPYRIDINE HCL 100 MG TAB PO SCH ×2 (09:33→11:57)
[2017-04-27] MEDS: CEFEPIME HYDROCHLORIDE 2 GM in D5W 5% 50 ML IV SCH (09:33)
[2017-04-27 11:52] VITALS: BP 133/90
[2017-04-27 13:00] VITALS: BP 139/77
[2017-04-27 14:33] VITALS: BP 133/98
== END 2017-04-27 15:40 | disposition home or self-care (01) | DRG 463 ==
LOC: EDBD 19:07 → ER 19:10 → TELE 19:11 → CENTRAL 04-18 20:47
PROVIDERS: ADMIT Nurse Practitioner Family; ATTEND Internal Medicine Pulmonary Disease
DX: N12 Tubulo-interstitial nephritis, not specified as acute or chronic (principal); N31.9 Neuromuscular dysfunction of bladder, unspecified; Z68.44 Body mass index [BMI] 60.0-69.9, adult; E44.1 Mild protein-calorie malnutrition; I10 Essential (primary) hypertension; B35.6 Tinea cruris; E66.01 Morbid (severe) obesity due to excess calories; E11.9 Type 2 diabetes mellitus without complications; N40.0 Benign prostatic hyperplasia without lower urinary tract symptoms; B96.4 Proteus (mirabilis) (morganii) as the cause of diseases classified elsewhere; Z16.39 Resistance to other specified antimicrobial drug; F41.9 Anxiety disorder, unspecified; G89.4 Chronic pain syndrome; Z87.01 Personal history of pneumonia (recurrent); Z82.49 Family history of ischemic heart disease and other diseases of the circulatory system; Z86.711 Personal history of pulmonary embolism; Z89.511 Acquired absence of right leg below knee; Z89.512 Acquired absence of left leg below knee; Q05.9 Spina bifida, unspecified; Z88.6 Allergy status to analgesic agent; Z88.0 Allergy status to penicillin; Z88.2 Allergy status to sulfonamides; Z79.899 Other long term (current) drug therapy; Z86.14 Personal history of Methicillin resistant Staphylococcus aureus infection
CPT/HCPCS: 36415; 71010; 80048; 80053; 80202; 81001; 83605; 83735; 85025; 85610; 85730; 87081; 87086; 87088; 87186; 93005; 96361; 96365; 96366; 96375; 96376; J1885; J1956; J2405; J7060

== ENCOUNTER 2017-06-26 14:25 | Emergency (ER) | payer MEDICAID ==
[~2017-06-26 14:25] MED LIST changes: +ALPR1TAB2 PO; -CEFT1INJ6 IM; -NITR-48 PO
[2017-06-26] MEDS ORDERED: HYDROmorphone HCL 2 MG/ML VL IM ONE (15:30)
[2017-06-26] MEDS ORDERED: MORPHINE SULF INJ 2 MG/ML SYRINGE 1ML IM ONE (17:00)
[2017-06-26] MEDS ORDERED: LIDOCAINE 2% JELLY 11ml (GLYDO) ONE (17:57)
[2017-06-26] MEDS ORDERED: LIDOCAINE 2% JELLY 11ml (GLYDO) UR ONE (18:30)
[2017-06-26 20:12] LABS: Urine Bilirubin Negative (Negative); Urine Blood Negative /uL (Negative); Urine Glucose Normal (Normal); Urine Ketone Negative (Negative); Urine Mucus FEW (None Seen); Urine Nitrite POSITIVE (Negative); Urine RBC 14 /hpf (0 - 3); Urine Squamous Epithelial Cell FEW /hpf (<5); Urine Triple Phosphate Crystal FEW /hpf (None Seen); Urine Urobilinogen Normal (Negative); Urine pH 8.5 (5.0-8.0)
[2017-06-26 20:21] LABS: Urine Color Yellow (Yellow)
[2017-06-26] MEDS ORDERED: HYDROmorphone HCL 2 MG TAB PO ONE (21:45)
[2017-06-27] MEDS ORDERED: HYDROmorphone HCL 2 MG TAB PO ONE (05:45)
[2017-06-27 06:00] VITALS: BP 135/78
== END 2017-06-27 19:48 | disposition home or self-care (01) ==
LOC: EDBD 14:25 → ER 14:25
DX: N48.89 Other specified disorders of penis (principal); F17.210 Nicotine dependence, cigarettes, uncomplicated; F12.10 Cannabis abuse, uncomplicated; E11.9 Type 2 diabetes mellitus without complications; I10 Essential (primary) hypertension; Z88.2 Allergy status to sulfonamides; Z88.0 Allergy status to penicillin; Z46.6 Encounter for fitting and adjustment of urinary device; Z88.6 Allergy status to analgesic agent; Z88.8 Allergy status to other drugs, medicaments and biological substances; Z90.49 Acquired absence of other specified parts of digestive tract; Z90.89 Acquired absence of other organs
CPT/HCPCS: 51702; 81001; 96372; 99284; J2270

== ENCOUNTER 2017-08-14 04:03 | Inpatient (IN) | payer MEDICAID ==
[~2017-08-14] VITALS: Ht 175.3 cm; Wt 159.2 kg
[~2017-08-14 04:03] MED LIST changes: -HYDR2TAB29 PO; +HYDR2TAB58 PO
[2017-08-14] MEDS ORDERED: SODIUM CHLORIDE 0.9% 1,000 ML IV ONE ×2 (07:18)
[2017-08-14 09:14] LABS: Basophils # (auto) 0.1 uL; Eosinophils # (auto) 0.1 uL; Monocytes # (auto) 0.9 uL
[2017-08-14] MEDS ORDERED: ONDANSETRON HCL 4 MG/2 ML VIAL IV ONE (09:15)
[2017-08-14] MEDS ORDERED: HYDROmorphone HCL 2 MG/ML VL IV ONE (09:15)
[2017-08-14 09:18] LABS: Eosinophils % (auto) 1.5 % (0.0-7.0); Hemoglobin 13.4 g/dL (13.5-17.5); Lymphocytes # (auto) 1.4 uL; Mean Corpuscular Hemoglobin 21.7 pg (28.0-32.0); Mean Corpuscular Hgb Conc. 31.1 g/dL (32.0-36.0); Mean Corpuscular Volume 69.8 fL (80.0-100.0); Monocytes % (auto) 11.9 % (0.0-12.0); Neutrophils % (auto) 66.6 % (37.0-80.0); Nucleated Red Blood Cells % 0.2 %; Platelet Count (auto) 284 10^3/uL (140-450); Red Blood Cells 6.17 10^6/uL (4.5-5.90); White Blood Cell 7.5 10^3/uL (4.4-10.8)
[2017-08-14 09:24] LABS: INR 0.97 (0.9-1.15); Partial Thromboplastin Time 29.7 sec (22.64-33.71); Prothrombin Time 10.6 sec (9.37-12.3)
[2017-08-14 09:31] LABS: Calcium 8.4 mg/dL (8.5-10.1); Chloride 103 mmol/L (98-107); Potassium 3.5 mmol/L (3.5-5.1); Sodium 138 mmol/L (136-145)
[2017-08-14 09:45] LABS: Red Cell Distribution Width 21.8 % (11.8-14.3)
[2017-08-14] MEDS ORDERED: VANCOMYCIN PER PHARMACY 0 MG IV SCH (09:45)
[2017-08-14] MEDS ORDERED: VANCOMYCIN 1GM/250ML 250 ML IV ONE (10:00)
[2017-08-14 10:23] LABS: Alanine Aminotransferase 66 U/L (16-61); Albumin 3.2 g/dL (3.4-5.0); Alkaline Phosphatase 274 U/L (45-117); Anion Gap 7 (5-15); Aspartate Aminotransferase 25 U/L (15-37); BUN/Creatinine Ratio 17.4; Bilirubin, Total 0.5 mg/dL (0.2-1.0); Blood Urea Nitrogen 8 mg/dL (7-18); Carbon Dioxide 28 mmol/L (21-32); GFR African American 252 mL/min; GFR Non-African American 209 mL/min; Glucose 83 mg/dL (74-106); Total Protein 7.9 g/dL (6.4-8.2)
[2017-08-14] MEDS ORDERED: VANCOMYCIN 1GM/250ML 250 ML IV SCH (11:00)
[2017-08-14] MEDS ORDERED: ALBUTEROL SULF 2.5 MG/0.5ML(0.5%) NEB SOLN NEB PRN (11:15)
[2017-08-14] MEDS ORDERED: HYDROmorphone HCL 2 MG/ML VL IV PRN (11:15)
[2017-08-14] MEDS ORDERED: ENOXAPARIN SOD 40 MG/0.4 ML SYRINGE SC ONE (11:15)
[2017-08-14] MEDS ORDERED: HYDROcodone-ACET 10/325MG TAB PO PRN (11:15)
[2017-08-14] MEDS ORDERED: IPRATROPIUM BROM 0.5 MG/2.5ML INH SOL NEB PRN (11:15)
[2017-08-14] MEDS ORDERED: hydrALAZINE HCL 20 MG/ML VL IV PRN (11:45)
[2017-08-14 11:51] LABS: Cholesterol 176 mg/dL (< 200); HDL Cholesterol 56 mg/dL (40-59); LDL Cholesterol 105 mg/dL (< 100); Triglycerides 130 mg/dL (< 150)
[2017-08-14 12:06] VITALS: BP 148/125
[2017-08-14] MEDS: ONDANSETRON HCL 4 MG/2 ML VIAL IV PRN ×2 (13:57→15:01)
[2017-08-14] MEDS ORDERED: ASPirin 81 mg TAB PO ONE (15:00)
[2017-08-14] MEDS: ALPRAZolam 0.5 MG TAB PO SCH ×2 (15:00→21:25)
[2017-08-14 15:50] VITALS: BP 131/68
[2017-08-14 16:36] VITALS: BP 131/68
[2017-08-14] MEDS: HYDROmorphone HCL 2 MG/ML VL IV PRN ×2 (17:59→22:09)
[2017-08-14 22:00] VITALS: BP 132/91
[2017-08-14] MEDS ORDERED: PANTOPRAZOLE 40 MG/10 ML VIAL IV SCH (22:00)
[2017-08-15] MEDS: HYDROmorphone HCL 2 MG/ML VL IV PRN ×6 (02:03→23:07)
[2017-08-15 05:00] VITALS: BP 112/65
[2017-08-15 05:54] LABS: Basophils # (auto) 0 uL; Basophils % (auto) 0.5 % (0.0-2.0); Eosinophils # (auto) 0.2 uL; Eosinophils % (auto) 2.8 % (0.0-7.0); Hemoglobin 11.9 g/dL (13.5-17.5); Lymphocytes # (auto) 1.3 uL; Monocytes # (auto) 0.8 uL; Platelet Count (auto) 234 10^3/uL (140-450)
[2017-08-15 05:56] LABS: Hematocrit 38.7 % (41.0-53.0); Lymphocytes % (auto) 21.7 % (10.0-50.0); Mean Corpuscular Hemoglobin 21.7 pg (28.0-32.0); Mean Corpuscular Hgb Conc. 30.8 g/dL (32.0-36.0); Mean Corpuscular Volume 70.4 fL (80.0-100.0); Monocytes % (auto) 13.7 % (0.0-12.0); Neutrophils # (auto) 3.6 uL; Neutrophils % (auto) 61.3 % (37.0-80.0); Nucleated Red Blood Cells % 0.1 %; White Blood Cell 5.9 10^3/uL (4.4-10.8)
[2017-08-15] MEDS: ALPRAZolam 0.5 MG TAB PO SCH ×4 (06:00→22:14)
[2017-08-15 06:12] LABS: Red Cell Distribution Width 21.8 % (11.8-14.3)
[2017-08-15 06:26] LABS: Albumin 2.5 g/dL (3.4-5.0); BUN/Creatinine Ratio 19.2; Bilirubin, Total 0.4 mg/dL (0.2-1.0); Calcium 7.2 mg/dL (8.5-10.1); Potassium 3.7 mmol/L (3.5-5.1); Total Protein 6.2 g/dL (6.4-8.2)
[2017-08-15 08:00] VITALS: BP 113/69
[2017-08-15 08:56] VITALS: BP 113/79
[2017-08-15] MEDS: PANTOPRAZOLE 40 MG TAB PO SCH (10:10)
[2017-08-15] MEDS: ASPirin 81 mg TAB PO SCH (10:10)
[2017-08-15] MEDS: ENOXAPARIN SOD 40 MG/0.4 ML SYRINGE SC SCH (10:11)
[2017-08-15] MEDS: amLODIPine BESYLATE 5 MG TAB PO SCH (10:11)
[2017-08-15] MEDS: ERTAPENEM SOD INJ 1 GM in SODIUM CHL 0.9% 100 ML IV SCH (10:23)
[2017-08-15] MEDS ORDERED: VANCOMYCIN PER PHARMACY 0 MG IV SCH (11:15)
[2017-08-15 13:00] VITALS: BP 149/87
[2017-08-15] MEDS: VANCOMYCIN 1GM/250ML 250 ML IV SCH ×2 (15:35→22:14)
[2017-08-15 17:00] VITALS: BP_SYST 121; BP_SYST 140; BP_DIAS 58; BP_DIAS 74
[2017-08-15 22:00] VITALS: BP 133/88
[2017-08-16] MEDS: HYDROmorphone HCL 2 MG/ML VL IV PRN ×2 (03:05→08:14)
[2017-08-16] MEDS: VANCOMYCIN 1GM/250ML 250 ML IV SCH (05:00)
[2017-08-16 05:42] VITALS: BP 126/94
[2017-08-16] MEDS: ALPRAZolam 0.5 MG TAB PO SCH ×3 (05:52→22:43)
[2017-08-16 08:52] LABS: Calcium 7.2 mg/dL (8.5-10.1); Potassium 4.2 mmol/L (3.5-5.1)
[2017-08-16 09:00] VITALS: BP 133/90
[2017-08-16] MEDS: ASPirin 81 mg TAB PO SCH (09:12)
[2017-08-16] MEDS: ENOXAPARIN SOD 40 MG/0.4 ML SYRINGE SC SCH (09:12)
[2017-08-16] MEDS: ERTAPENEM SOD INJ 1 GM in SODIUM CHL 0.9% 100 ML IV SCH (09:12)
[2017-08-16] MEDS: amLODIPine BESYLATE 5 MG TAB PO SCH (09:13)
[2017-08-16] MEDS: PANTOPRAZOLE 40 MG TAB PO SCH (09:13)
[2017-08-16 10:22] LABS: Basophils # (auto) 0 uL; Basophils % (auto) 0.7 % (0.0-2.0); Eosinophils # (auto) 0.2 uL; Mean Corpuscular Hemoglobin 21.4 pg (28.0-32.0); Monocytes # (auto) 0.7 uL; Neutrophils # (auto) 3.2 uL; White Blood Cell 5.3 10^3/uL (4.4-10.8)
[2017-08-16 10:24] LABS: Eosinophils % (auto) 2.9 % (0.0-7.0); Hemoglobin 12.3 g/dL (13.5-17.5); Lymphocytes # (auto) 1.1 uL; Lymphocytes % (auto) 21.4 % (10.0-50.0); Mean Corpuscular Hgb Conc. 29.4 g/dL (32.0-36.0); Mean Corpuscular Volume 72.7 fL (80.0-100.0); Monocytes % (auto) 14.1 % (0.0-12.0); Neutrophils % (auto) 60.9 % (37.0-80.0); Nucleated Red Blood Cells % 0.1 %; Platelet Count (auto) 240 10^3/uL (140-450); Red Blood Cells 5.78 10^6/uL (4.5-5.90)
[2017-08-16 10:28] LABS: Urine Bacteria FEW /hpf (None Seen); Urine Blood TRACE /uL (Negative); Urine Mucus FEW (None Seen); Urine Specific Gravity 1.016 (1.001-1.035); Urine WBC 45 /hpf (0 - 3)
[2017-08-16] MEDS ORDERED: ASPI81CH43 PO (12:27)
[2017-08-16] MEDS ORDERED: DOXY-216 PO (12:33)
[2017-08-16 12:48] VITALS: BP 123/89
[2017-08-16] MEDS ORDERED: ONDANSETRON HCL 4 MG/2 ML VIAL IV ONE (13:00)
[2017-08-16] MEDS ORDERED: MORPHINE SULFATE 10 MG/ML INJ 1ML SDV IV ONE (13:00)
[2017-08-16 13:08] VITALS: BP 133/90
[2017-08-16] MEDS: DOXYCYCLINE 100 MG TAB/CAP PO SCH ×2 (13:30→22:43)
[2017-08-16 17:07] VITALS: BP 114/82
[2017-08-16] MEDS: HYDROmorphone HCL 2 MG TAB PO PRN (19:42)
[2017-08-16 22:00] VITALS: BP 129/71
[2017-08-17 09:00] VITALS: BP 146/84
[2017-08-17] MEDS ORDERED: LEVO-28 PO (09:03)
[2017-08-17] MEDS: ASPirin 81 mg TAB PO SCH (09:36)
[2017-08-17] MEDS: DOXYCYCLINE 100 MG TAB/CAP PO SCH (09:37)
[2017-08-17] MEDS: amLODIPine BESYLATE 5 MG TAB PO SCH (09:37)
[2017-08-17] MEDS: ENOXAPARIN SOD 40 MG/0.4 ML SYRINGE SC SCH (09:37)
[2017-08-17] MEDS: PANTOPRAZOLE 40 MG TAB PO SCH (09:37)
[2017-08-17] MEDS: HYDROmorphone HCL 2 MG TAB PO PRN ×3 (09:38→13:28)
[2017-08-17] MEDS: ALPRAZolam 0.5 MG TAB PO SCH (10:56)
[2017-08-17 12:00] VITALS: BP 124/76
== END 2017-08-17 15:00 | disposition home or self-care (01) | DRG 720 ==
LOC: EDBD 04:03 → ER 04:05 → OVERFLOW 04:06 → EAST 15:30 → UNDODISIN 08-17 00:18
PROVIDERS: ADMIT Internal Medicine; ATTEND Internal Medicine
DX: A41.9 Sepsis, unspecified organism (principal); D68.59 Other primary thrombophilia; E44.0 Moderate protein-calorie malnutrition; Z68.43 Body mass index [BMI] 50.0-59.9, adult; E66.01 Morbid (severe) obesity due to excess calories; I82.612 Acute embolism and thrombosis of superficial veins of left upper extremity; N31.9 Neuromuscular dysfunction of bladder, unspecified; N12 Tubulo-interstitial nephritis, not specified as acute or chronic; E11.9 Type 2 diabetes mellitus without complications; F12.10 Cannabis abuse, uncomplicated; F17.210 Nicotine dependence, cigarettes, uncomplicated; I10 Essential (primary) hypertension; J44.9 Chronic obstructive pulmonary disease, unspecified; K21.9 Gastro-esophageal reflux disease without esophagitis; L89.90 Pressure ulcer of unspecified site, unspecified stage; F41.9 Anxiety disorder, unspecified; G89.29 Other chronic pain; M54.9 Dorsalgia, unspecified; B95.61 Methicillin susceptible Staphylococcus aureus infection as the cause of diseases classified elsewhere; Q05.9 Spina bifida, unspecified; Z82.49 Family history of ischemic heart disease and other diseases of the circulatory system; Z83.3 Family history of diabetes mellitus; Z86.14 Personal history of Methicillin resistant Staphylococcus aureus infection; Z86.711 Personal history of pulmonary embolism; Z86.718 Personal history of other venous thrombosis and embolism; Z87.440 Personal history of urinary (tract) infections; Z89.511 Acquired absence of right leg below knee; Z89.512 Acquired absence of left leg below knee; Z93.3 Colostomy status; Z88.1 Allergy status to other antibiotic agents; Z88.5 Allergy status to narcotic agent; Z88.0 Allergy status to penicillin; Z88.2 Allergy status to sulfonamides
CPT/HCPCS: 36415; 71045; 74176; 80048; 80053; 80061; 80202; 81001; 83605; 83690; 83880; 84484; 85025; 85379; 85610; 85652; 85730; 87040; 87070; 87077; 87081; 87086; 87186; 93971; 96361; 96365; 96375; J1335; J2405

== ENCOUNTER 2017-11-07 20:27 | Inpatient (IN) | payer MEDICAID ==
[~2017-11-07] VITALS: Ht 157.5 cm; Wt 164.3 kg
[~2017-11-07 20:27] MED LIST changes: +ASPI81CH43 PO; +DOXY-216 PO; +LEVO-28 PO
[2017-11-07 21:29] LABS: Albumin 2.5 g/dL (3.4-5.0); Calcium 7.5 mg/dL (8.5-10.1); Potassium 4.6 mmol/L (3.5-5.1)
[2017-11-07 21:31] LABS: BUN/Creatinine Ratio 11.8; Lactic Acid w/Reflex 2.5 mmol/L (0.4-2.0)
[2017-11-07 21:47] LABS: Bilirubin, Total 1.5 mg/dL (0.2-1.0); Total Protein 6.8 g/dL (6.4-8.2)
[2017-11-07 21:49] LABS: Eosinophils # (auto) 0 uL; Hemoglobin 12.8 g/dL (13.5-17.5); Monocytes # (auto) 1.3 uL; Nucleated Red Blood Cells % 0.2 %
[2017-11-07 21:51] LABS: Basophils # (auto) 0.2 uL; Basophils % (auto) 1.6 % (0.0-2.0); Hematocrit 46.5 % (41.0-53.0); Lymphocytes # (auto) 0.5 uL; Lymphocytes % (auto) 3.2 % (10.0-50.0); Mean Corpuscular Hemoglobin 18.7 pg (28.0-32.0); Mean Corpuscular Hgb Conc. 27.5 g/dL (32.0-36.0); Monocytes % (auto) 8.7 % (0.0-12.0); Neutrophils % (auto) 86.5 % (37.0-80.0); Platelet Count (auto) 224 10^3/uL (140-450); Red Blood Cells 6.84 10^6/uL (4.5-5.90); White Blood Cell 15.1 10^3/uL (4.4-10.8)
[2017-11-07] MEDS ORDERED: SODIUM CHLORIDE 0.9% 1,000 ML IV ONE (22:15)
[2017-11-07] MEDS ORDERED: AZTREONAM 1GM INJ 1 GM in D5W 5% 50 ML IV ONE (23:00)
[2017-11-07] MEDS ORDERED: SODIUM CHLORIDE 0.9% 500 ML IV ONE (23:00)
[2017-11-08] MEDS ORDERED: IPRATROPIUM BROM 0.5 MG/2.5ML INH SOL NEB ONE ×2 (00:15)
[2017-11-08] MEDS ORDERED: ALBUTEROL SULF 2.5 MG/0.5ML(0.5%) NEB SOLN NEB ONE ×2 (00:15)
[2017-11-08] MEDS ORDERED: methylPREDNISolone SOD SUCC 125 MG/2 ML VL IV ONE (00:15)
[2017-11-08] MEDS ORDERED: LEVOFLOXACIN 750MG 150 ML IV ONE (00:45)
[2017-11-08] MEDS ORDERED: FUROSEMIDE 40 MG/4 ML VIAL IV ONE (02:15)
[2017-11-08] MEDS ORDERED: ONDANSETRON HCL 4 MG/2 ML VIAL IV PRN (02:15)
[2017-11-08] MEDS ORDERED: MORPHINE SULFATE 8mg/ml INJ SDV IV PRN ×2 (02:15)
[2017-11-08] MEDS ORDERED: DEXTROSE (50%) 50ML SYRG IV PRN (02:15)
[2017-11-08] MEDS ORDERED: NITROGLYCERIN 0.4 MG SL TAB SL PRN (02:15)
[2017-11-08] MEDS ORDERED: CARVEDILOL 3.125 MG TAB PO ONE (02:15)
[2017-11-08] MEDS ORDERED: ATORVASTATIN 20 MG TAB PO ONE (02:15)
[2017-11-08] MEDS ORDERED: ENOXAPARIN SOD 150 MG/1 ML SYRINGE SC ONE (02:15)
[2017-11-08] MEDS: ALPRAZolam 0.5 MG TAB PO PRN (03:56)
[2017-11-08] MEDS: ENOXAPARIN SOD 150 MG/1 ML SYRINGE SC SCH ×2 (03:56→16:00)
[2017-11-08] MEDS ORDERED: SODIUM CHLORIDE 0.9% 1,000 ML IV SCH ×2 (05:30→14:30)
[2017-11-08] MEDS ORDERED: SODIUM CHLORIDE 0.9% 1,000 ML IV ONE (05:30)
[2017-11-08] MEDS: InsuLIN REG 1unit/0.01ml Soln (100units/ml) SC SCH ×3 (06:00→18:00)
[2017-11-08] MEDS: ACCU-CHEK COMFORT CURVE STRIP VI SCH ×4 (06:00→23:57)
[2017-11-08] MEDS ORDERED: FUROSEMIDE 20 MG TAB PO SCH (06:00)
[2017-11-08] MEDS: metroNIDAZOLE 500MG/100ML 100 ML IV SCH ×4 (06:00→22:00)
[2017-11-08 06:20] LABS: Urine Bacteria FEW /hpf (None Seen); Urine Blood Negative /uL (Negative); Urine Mucus FEW (None Seen); Urine Specific Gravity 1.007 (1.001-1.035); Urine WBC 16 /hpf (0 - 3); Urine WBC Clumps PRESENT /hpf (None Seen)
[2017-11-08 06:35] LABS: Alcohol, Urine < 3.0 mg/dL (0-5); Amphetamine Screen, Urine NEGATIVE (NEGATIVE); Barbiturate Scree,Urine NEGATIVE (NEGATIVE); Benzodiazephine Screen, Urine POSITIVE (NEGATIVE); Cannabinoid Screen, Urine POSITIVE (NEGATIVE); Cocaine Screen, Urine NEGATIVE (NEGATIVE); Opiate Scree,Urine POSITIVE (NEGATIVE); Phencyclidine Screen, Urine NEGATIVE (NEGATIVE)
[2017-11-08] MEDS ORDERED: ASPirin 81 mg TAB PO SCH (10:00)
[2017-11-08] MEDS ORDERED: ENOXAPARIN SOD 30 MG/0.3 ML SYRINGE SC SCH (10:00)
[2017-11-08 10:02] VITALS: BP 138/87
[2017-11-08] MEDS: methylPREDNISolone SOD SUCC 125 MG/2 ML VL IV SCH ×2 (10:46→22:23)
[2017-11-08] MEDS: CARVEDILOL 3.125 MG TAB PO SCH ×2 (10:46→22:23)
[2017-11-08] MEDS: PANTOPRAZOLE 40 MG TAB PO SCH (10:46)
[2017-11-08] MEDS: FUROSEMIDE 20 MG/2 ML VIAL IV SCH (18:09)
[2017-11-08] MEDS: LEVOFLOXACIN 750MG 150 ML IV SCH (21:00)
[2017-11-08] MEDS: ATORVASTATIN 20 MG TAB PO SCH (22:23)
[2017-11-09 02:32] VITALS: BP 118/75
[2017-11-09] MEDS: ENOXAPARIN SOD 150 MG/1 ML SYRINGE SC SCH ×2 (04:00→04:25)
[2017-11-09 04:30] VITALS: BP 110/61
[2017-11-09 05:20] LABS: Basophils # (auto) 0 uL; Eosinophils # (auto) 0 uL; Hemoglobin 12.3 g/dL (13.5-17.5); Monocytes # (auto) 0.1 uL
[2017-11-09 05:23] LABS: Basophils % (auto) 0.1 % (0.0-2.0); Hematocrit 42.3 % (41.0-53.0); Lymphocytes # (auto) 0.3 uL; Lymphocytes % (auto) 3.9 % (10.0-50.0); Mean Corpuscular Hemoglobin 18.7 pg (28.0-32.0); Mean Corpuscular Hgb Conc. 29.2 g/dL (32.0-36.0); Mean Corpuscular Volume 64.2 fL (80.0-100.0); Monocytes % (auto) 2.1 % (0.0-12.0); Neutrophils # (auto) 6.3 uL; Neutrophils % (auto) 93.9 % (37.0-80.0); Nucleated Red Blood Cells % 0.7 %; Platelet Count (auto) 168 10^3/uL (140-450); Red Blood Cells 6.59 10^6/uL (4.5-5.90); White Blood Cell 6.7 10^3/uL (4.4-10.8)
[2017-11-09] MEDS: ACCU-CHEK COMFORT CURVE STRIP VI SCH (05:33)
[2017-11-09] MEDS: metroNIDAZOLE 500MG/100ML 100 ML IV SCH (05:33)
[2017-11-09] MEDS: FUROSEMIDE 20 MG/2 ML VIAL IV SCH ×2 (05:34→17:49)
[2017-11-09 05:41] LABS: Red Cell Distribution Width 23.3 % (11.8-14.3)
[2017-11-09 05:53] LABS: Albumin 2.4 g/dL (3.4-5.0); BUN/Creatinine Ratio 16.7; Bilirubin, Total 0.6 mg/dL (0.2-1.0); Calcium 7.4 mg/dL (8.5-10.1); Potassium 3.8 mmol/L (3.5-5.1); Total Protein 6.5 g/dL (6.4-8.2)
[2017-11-09] MEDS: InsuLIN REG 1unit/0.01ml Soln (100units/ml) SC SCH ×2 (05:59)
[2017-11-09 06:30] VITALS: BP 115/66
[2017-11-09] MEDS ORDERED: CLOPIDOGREL BISULFATE 75 MG TAB PO ONE (06:45)
[2017-11-09] MEDS: methylPREDNISolone SOD SUCC 125 MG/2 ML VL IV SCH ×2 (10:23→21:02)
[2017-11-09] MEDS: PANTOPRAZOLE 40 MG TAB PO SCH (10:23)
[2017-11-09] MEDS: ASPirin 81 mg TAB PO SCH (10:23)
[2017-11-09] MEDS: CARVEDILOL 3.125 MG TAB PO SCH ×2 (10:24→21:03)
[2017-11-09] MEDS: ENOXAPARIN SOD 80 MG/0.8ML SYRINGE SC SCH (10:25)
[2017-11-09 12:00] VITALS: BP 125/73
[2017-11-09] MEDS ORDERED: KETOROLAC TROMETH 30 MG/ML 1ML VIAL IV PRN (12:15)
[2017-11-09 16:00] VITALS: BP 125/79
[2017-11-09 20:00] VITALS: BP 121/70
[2017-11-09] MEDS: ATORVASTATIN 20 MG TAB PO SCH (21:02)
[2017-11-09] MEDS: ALPRAZolam 0.5 MG TAB PO PRN (21:02)
[2017-11-09] MEDS: LEVOFLOXACIN 750MG 150 ML IV SCH (21:02)
[2017-11-10] MEDS: FUROSEMIDE 20 MG/2 ML VIAL IV SCH ×2 (06:54→17:51)
[2017-11-10 08:00] VITALS: BP 136/76
[2017-11-10 08:33] LABS: BUN/Creatinine Ratio 20.2; Calcium 7.5 mg/dL (8.5-10.1); Potassium 3.4 mmol/L (3.5-5.1)
[2017-11-10 09:21] LABS: Basophils # (auto) 0 uL; Eosinophils # (auto) 0 uL; Lymphocytes # (auto) 0.2 uL; Mean Corpuscular Volume 64.4 fL (80.0-100.0)
[2017-11-10 09:22] LABS: Basophils % (auto) 0.1 % (0.0-2.0); Hematocrit 44.5 % (41.0-53.0); Hemoglobin 12.6 g/dL (13.5-17.5); Lymphocytes % (auto) 6.1 % (10.0-50.0); Mean Corpuscular Hemoglobin 18.2 pg (28.0-32.0); Mean Corpuscular Hgb Conc. 28.3 g/dL (32.0-36.0); Monocytes # (auto) 0.1 uL; Monocytes % (auto) 3.7 % (0.0-12.0); Neutrophils # (auto) 3.2 uL; Neutrophils % (auto) 90.1 % (37.0-80.0); Nucleated Red Blood Cells % 1.2 %; Platelet Count (auto) 175 10^3/uL (140-450); Red Blood Cells 6.91 10^6/uL (4.5-5.90); White Blood Cell 3.6 10^3/uL (4.4-10.8)
[2017-11-10 09:26] LABS: Red Cell Distribution Width 23.9 % (11.8-14.3)
[2017-11-10] MEDS: IPRATROPIUM BROM 0.5 MG/2.5ML INH SOL NEB PRN (09:50)
[2017-11-10] MEDS: ALBUTEROL SULF 2.5 MG/0.5ML(0.5%) NEB SOLN NEB PRN (09:50)
[2017-11-10] MEDS: ALPRAZolam 0.5 MG TAB PO PRN ×2 (09:53→22:00)
[2017-11-10] MEDS: CARVEDILOL 3.125 MG TAB PO SCH ×2 (09:57→22:00)
[2017-11-10] MEDS: ASPirin 81 mg TAB PO SCH (09:57)
[2017-11-10] MEDS: PANTOPRAZOLE 40 MG TAB PO SCH (09:57)
[2017-11-10] MEDS: methylPREDNISolone SOD SUCC 125 MG/2 ML VL IV SCH ×2 (09:57→22:07)
[2017-11-10] MEDS: ENOXAPARIN SOD 80 MG/0.8ML SYRINGE SC SCH (09:58)
[2017-11-10 12:00] VITALS: BP 138/75
[2017-11-10] MEDS ORDERED: POTASSIUM CHL 20 Meq TABLET PO ONE (12:30)
[2017-11-10 16:00] VITALS: BP 139/73
[2017-11-10 19:53] VITALS: BP 120/65
[2017-11-10] MEDS: LEVOFLOXACIN 750MG 150 ML IV SCH (20:52)
[2017-11-10] MEDS: ATORVASTATIN 20 MG TAB PO SCH (22:07)
[2017-11-11] VITALS (8 sets, daily range): BP systolic 116–143; BP diastolic 60–77
[2017-11-11] MEDS: TEMAZEPAM 15 MG CAP PO PRN ×2 (00:55→22:51)
[2017-11-11 05:59] LABS: Potassium 3.3 mmol/L (3.5-5.1)
[2017-11-11] MEDS: FUROSEMIDE 20 MG/2 ML VIAL IV SCH (06:00)
[2017-11-11] MEDS ORDERED: POTASSIUM CHL 20 Meq TABLET PO ONE (06:37)
[2017-11-11] MEDS: CARVEDILOL 3.125 MG TAB PO SCH ×2 (10:00→21:59)
[2017-11-11] MEDS: methylPREDNISolone SOD SUCC 125 MG/2 ML VL IV SCH (10:09)
[2017-11-11] MEDS: ASPirin 81 mg TAB PO SCH (10:09)
[2017-11-11] MEDS: PANTOPRAZOLE 40 MG TAB PO SCH (10:11)
[2017-11-11] MEDS: ENOXAPARIN SOD 80 MG/0.8ML SYRINGE SC SCH (10:11)
[2017-11-11] MEDS: MEROPENEM 1gm/20ml IVPUSH 20 ML IV SCH ×2 (13:42→21:58)
[2017-11-11] MEDS: ALPRAZolam 0.5 MG TAB PO PRN (14:11)
[2017-11-11] MEDS: MORPHINE SULFATE 8mg/ml INJ SDV IV PRN ×2 (15:44→22:00)
[2017-11-11] MEDS: IPRATROPIUM BROM 0.5 MG/2.5ML INH SOL NEB PRN (18:48)
[2017-11-11] MEDS: ALBUTEROL SULF 2.5 MG/0.5ML(0.5%) NEB SOLN NEB PRN (18:49)
[2017-11-11] MEDS: ATORVASTATIN 20 MG TAB PO SCH (21:58)
[2017-11-12] VITALS (9 sets, daily range): BP systolic 96–147; BP diastolic 52–94
[2017-11-12] MEDS: MORPHINE SULFATE 8mg/ml INJ SDV IV PRN ×4 (05:24→22:20)
[2017-11-12] MEDS: MEROPENEM 1gm/20ml IVPUSH 20 ML IV SCH ×3 (05:24→22:58)
[2017-11-12 06:41] LABS: Magnesium 1.9 mg/dL (1.6-2.6); Potassium 3.4 mmol/L (3.5-5.1)
[2017-11-12] MEDS ORDERED: MAGNESIUM SULFATE 1GM/100ML 100 ML IV ONE (10:15)
[2017-11-12] MEDS ORDERED: POTASSIUM CHL 20 Meq TABLET PO ONE (10:15)
[2017-11-12] MEDS: PANTOPRAZOLE 40 MG TAB PO SCH (10:23)
[2017-11-12] MEDS: POTASSIUM CHL 10 Meq TABLET PO SCH (10:23)
[2017-11-12] MEDS: CARVEDILOL 3.125 MG TAB PO SCH ×2 (10:24→22:00)
[2017-11-12] MEDS: ASPirin 81 mg TAB PO SCH (10:24)
[2017-11-12] MEDS: FUROSEMIDE 20 MG/2 ML VIAL IV SCH (10:25)
[2017-11-12] MEDS: methylPREDNISolone SOD SUCC 40 MG/ML VL IV SCH (10:25)
[2017-11-12] MEDS ORDERED: ENOXAPARIN SOD 80 MG/0.8ML SYRINGE SC SCH (10:45)
[2017-11-12] MEDS: ENOXAPARIN SOD 40 MG/0.4 ML SYRINGE SC SCH (10:45)
[2017-11-12] MEDS: IPRATROPIUM BROM 0.5 MG/2.5ML INH SOL NEB PRN ×2 (11:17→19:29)
[2017-11-12] MEDS: ALBUTEROL SULF 2.5 MG/0.5ML(0.5%) NEB SOLN NEB PRN ×2 (11:17→19:29)
[2017-11-12] MEDS: ALPRAZolam 0.5 MG TAB PO PRN (14:21)
[2017-11-12] MEDS: ATORVASTATIN 20 MG TAB PO SCH (22:20)
[2017-11-12] MEDS: TEMAZEPAM 15 MG CAP PO PRN (22:58)
[2017-11-13] MEDS: ALPRAZolam 0.5 MG TAB PO PRN ×2 (02:09→23:00)
[2017-11-13] MEDS: MORPHINE SULFATE 8mg/ml INJ SDV IV PRN ×4 (04:16→23:03)
[2017-11-13 05:20] VITALS: BP 115/66
[2017-11-13 09:06] VITALS: BP 107/65
[2017-11-13] MEDS: FUROSEMIDE 20 MG/2 ML VIAL IV SCH (09:17)
[2017-11-13] MEDS: POTASSIUM CHL 10 Meq TABLET PO SCH (09:18)
[2017-11-13] MEDS: methylPREDNISolone SOD SUCC 40 MG/ML VL IV SCH (09:18)
[2017-11-13] MEDS: ASPirin 81 mg TAB PO SCH (09:18)
[2017-11-13] MEDS: PANTOPRAZOLE 40 MG TAB PO SCH (09:19)
[2017-11-13] MEDS: CARVEDILOL 3.125 MG TAB PO SCH ×2 (09:19→22:00)
[2017-11-13] MEDS: ENOXAPARIN SOD 40 MG/0.4 ML SYRINGE SC SCH (09:20)
[2017-11-13] MEDS: MEROPENEM 1gm/20ml IVPUSH 20 ML IV SCH ×3 (09:20→22:00)
[2017-11-13] MEDS: ALBUTEROL SULF 2.5 MG/0.5ML(0.5%) NEB SOLN NEB PRN (09:56)
[2017-11-13] MEDS: IPRATROPIUM BROM 0.5 MG/2.5ML INH SOL NEB PRN (09:56)
[2017-11-13 13:02] VITALS: BP 101/68
[2017-11-13 14:16] LABS: BUN/Creatinine Ratio 20.8; Calcium 7.1 mg/dL (8.5-10.1); Potassium 4.1 mmol/L (3.5-5.1)
[2017-11-13 14:50] LABS: Basophils % (auto) 0.4 % (0.0-2.0); Eosinophils # (auto) 0 uL; Hemoglobin 14.2 g/dL (13.5-17.5); Lymphocytes # (auto) 0.3 uL
[2017-11-13 14:53] LABS: Basophils # (auto) 0 uL; Hematocrit 50.6 % (41.0-53.0); Mean Corpuscular Volume 64.5 fL (80.0-100.0); Monocytes # (auto) 0.3 uL; Monocytes % (auto) 2.5 % (0.0-12.0); Neutrophils # (auto) 12.6 uL; Neutrophils % (auto) 95.1 % (37.0-80.0); Nucleated Red Blood Cells % 0.2 %; Platelet Count (auto) 157 10^3/uL (140-450); Red Blood Cells 7.85 10^6/uL (4.5-5.90); White Blood Cell 13.3 10^3/uL (4.4-10.8)
[2017-11-13 15:08] LABS: Red Cell Distribution Width 23.7 % (11.8-14.3)
[2017-11-13 16:46] VITALS: BP 111/62
[2017-11-13 22:00] VITALS: BP 121/68
[2017-11-13] MEDS: TEMAZEPAM 15 MG CAP PO PRN (23:00)
[2017-11-13] MEDS: ATORVASTATIN 20 MG TAB PO SCH (23:00)
[2017-11-14 04:39] VITALS: BP 146/71
[2017-11-14] MEDS: MEROPENEM 1gm/20ml IVPUSH 20 ML IV SCH ×3 (05:31→22:00)
[2017-11-14] MEDS: MORPHINE SULFATE 8mg/ml INJ SDV IV PRN ×3 (05:32→17:52)
[2017-11-14 08:45] VITALS: BP 127/76
[2017-11-14] MEDS: FUROSEMIDE 20 MG/2 ML VIAL IV SCH (10:48)
[2017-11-14] MEDS: POTASSIUM CHL 10 Meq TABLET PO SCH (10:48)
[2017-11-14] MEDS: methylPREDNISolone SOD SUCC 40 MG/ML VL IV SCH (10:48)
[2017-11-14] MEDS: PANTOPRAZOLE 40 MG TAB PO SCH (10:49)
[2017-11-14] MEDS: ASPirin 81 mg TAB PO SCH (10:49)
[2017-11-14] MEDS: ENOXAPARIN SOD 40 MG/0.4 ML SYRINGE SC SCH (10:49)
[2017-11-14] MEDS: CARVEDILOL 3.125 MG TAB PO SCH ×2 (10:49→22:00)
[2017-11-14 12:57] VITALS: BP 98/63
[2017-11-14] MEDS: ALPRAZolam 0.5 MG TAB PO PRN (15:44)
[2017-11-14 17:01] VITALS: BP 104/64
[2017-11-14 18:00] VITALS: BP 97/55
[2017-11-14 20:36] VITALS: BP 104/64
[2017-11-14] MEDS: TEMAZEPAM 15 MG CAP PO PRN ×2 (22:00→23:43)
[2017-11-14] MEDS: ATORVASTATIN 20 MG TAB PO SCH (22:00)
[2017-11-15] MEDS: MORPHINE SULFATE 8mg/ml INJ SDV IV PRN ×4 (00:04→20:10)
[2017-11-15] MEDS: MEROPENEM 1gm/20ml IVPUSH 20 ML IV SCH ×3 (06:00→21:24)
[2017-11-15 07:44] LABS: Potassium 3.8 mmol/L (3.5-5.1)
[2017-11-15 07:48] LABS: BUN/Creatinine Ratio 37.3; Calcium 7.1 mg/dL (8.5-10.1)
[2017-11-15 08:52] LABS: Basophils # (auto) 0 uL; Basophils % (auto) 0.2 % (0.0-2.0); Eosinophils # (auto) 0 uL; Lymphocytes # (auto) 1.1 uL; Monocytes # (auto) 1.2 uL; Neutrophils # (auto) 10.4 uL
[2017-11-15 08:54] LABS: Hematocrit 46.6 % (41.0-53.0); Hemoglobin 13.1 g/dL (13.5-17.5); Lymphocytes % (auto) 8.4 % (10.0-50.0); Mean Corpuscular Hemoglobin 18.2 pg (28.0-32.0); Mean Corpuscular Hgb Conc. 28.2 g/dL (32.0-36.0); Mean Corpuscular Volume 64.4 fL (80.0-100.0); Monocytes % (auto) 9.6 % (0.0-12.0); Neutrophils % (auto) 81.8 % (37.0-80.0); Nucleated Red Blood Cells % 0.1 %; Platelet Count (auto) 143 10^3/uL (140-450); Red Blood Cells 7.22 10^6/uL (4.5-5.90); White Blood Cell 12.7 10^3/uL (4.4-10.8)
[2017-11-15 09:00] VITALS: BP 106/59
[2017-11-15 09:07] LABS: Red Cell Distribution Width 23.5 % (11.8-14.3)
[2017-11-15] MEDS: ALPRAZolam 0.5 MG TAB PO PRN (09:27)
[2017-11-15] MEDS: predniSONE 20 MG TAB PO SCH (09:27)
[2017-11-15] MEDS: ENOXAPARIN SOD 40 MG/0.4 ML SYRINGE SC SCH (09:27)
[2017-11-15] MEDS: POTASSIUM CHL 10 Meq TABLET PO SCH (09:27)
[2017-11-15] MEDS: PANTOPRAZOLE 40 MG TAB PO SCH (09:27)
[2017-11-15] MEDS: ASPirin 81 mg TAB PO SCH (09:28)
[2017-11-15] MEDS: FUROSEMIDE 40 MG TAB PO SCH (09:28)
[2017-11-15] MEDS: CARVEDILOL 3.125 MG TAB PO SCH ×3 (09:37→22:00)
[2017-11-15] MEDS ORDERED: TEMAZEPAM 15 MG CAP PO PRN (13:45)
[2017-11-15] MEDS ORDERED: ALPRAZolam 0.5 MG TAB PO PRN (13:45)
[2017-11-15 17:22] VITALS: BP 116/62
[2017-11-15] MEDS: ATORVASTATIN 20 MG TAB PO SCH (21:21)
[2017-11-15 22:00] VITALS: BP 120/67
[2017-11-16] MEDS: MORPHINE SULFATE 8mg/ml INJ SDV IV PRN ×2 (05:13→10:59)
[2017-11-16] MEDS: MEROPENEM 1gm/20ml IVPUSH 20 ML IV SCH ×2 (05:13→14:00)
[2017-11-16 05:29] VITALS: BP 112/75
[2017-11-16 07:02] LABS: Basophils # (auto) 0 uL; Eosinophils # (auto) 0 uL; Hemoglobin 13.1 g/dL (13.5-17.5); Lymphocytes # (auto) 1.4 uL; Mean Corpuscular Hemoglobin 18.4 pg (28.0-32.0); Mean Corpuscular Hgb Conc. 28.6 g/dL (32.0-36.0); Monocytes # (auto) 1.2 uL; Nucleated Red Blood Cells % 0.1 %
[2017-11-16 07:08] LABS: Basophils % (auto) 0.1 % (0.0-2.0); Eosinophils % (auto) 0.1 % (0.0-7.0); Hematocrit 45.9 % (41.0-53.0); Lymphocytes % (auto) 11.9 % (10.0-50.0); Mean Corpuscular Volume 64.3 fL (80.0-100.0); Monocytes % (auto) 10.4 % (0.0-12.0); Neutrophils # (auto) 8.9 uL; Neutrophils % (auto) 77.5 % (37.0-80.0); Red Blood Cells 7.14 10^6/uL (4.5-5.90); White Blood Cell 11.5 10^3/uL (4.4-10.8)
[2017-11-16 07:31] LABS: Red Cell Distribution Width 24.3 % (11.8-14.3)
[2017-11-16 07:32] LABS: Platelet Count (auto) 129 10^3/uL (140-450)
[2017-11-16] MEDS: CARVEDILOL 3.125 MG TAB PO SCH (10:00)
[2017-11-16] MEDS: ASPirin 81 mg TAB PO SCH (10:30)
[2017-11-16] MEDS: predniSONE 20 MG TAB PO SCH (10:30)
[2017-11-16] MEDS: ENOXAPARIN SOD 40 MG/0.4 ML SYRINGE SC SCH (10:31)
[2017-11-16] MEDS: FUROSEMIDE 40 MG TAB PO SCH (10:31)
[2017-11-16] MEDS: POTASSIUM CHL 10 Meq TABLET PO SCH (10:31)
[2017-11-16] MEDS: PANTOPRAZOLE 40 MG TAB PO SCH (10:31)
[2017-11-16] MEDS ORDERED: POTA20TA53 PO (10:36)
[2017-11-16] MEDS ORDERED: CAR3125T PO (10:36)
[2017-11-16] MEDS ORDERED: FURO40TA PO (10:36)
[2017-11-16] MEDS ORDERED: ATOR20TA PO (10:36)
[2017-11-16] MEDS ORDERED: ASPI81CH43 PO (10:43)
[2017-11-16 12:58] VITALS: BP 105/68
[2017-11-16 13:00] VITALS: BP 105/68
[2017-11-16] MEDS ORDERED: ERTAPENEM SOD INJ 1 GM in SODIUM CHL 0.9% 50 ML IV ONE (15:00)
[2017-11-17] MEDS ORDERED: ERTAPENEM SOD INJ 1 GM in SODIUM CHL 0.9% 50 ML IV SCH (10:00)
== END 2017-11-16 15:45 | disposition left against medical advice (07) | DRG 720 ==
LOC: ER 20:28 → TELE 20:29 → DOU IN ICU 11-09 01:50 → TELE-WESTW 11-12 15:57
PROVIDERS: ADMIT Nurse Practitioner; ATTEND Internal Medicine
PROC: 5A09357 Assistance with Respiratory Ventilation, Less than 24 Consecutive Hours, Continuous Positive Airway Pressure (ICD-10-PCS; principal; 2017-11-07)
PROC: 5A09357 Assistance with Respiratory Ventilation, Less than 24 Consecutive Hours, Continuous Positive Airway Pressure (ICD-10-PCS; 2017-11-08)
DX: A41.9 Sepsis, unspecified organism (principal); I21.4 Non-ST elevation (NSTEMI) myocardial infarction; J96.21 Acute and chronic respiratory failure with hypoxia; I50.33 Acute on chronic diastolic (congestive) heart failure; N17.0 Acute kidney failure with tubular necrosis; G93.49 Other encephalopathy; J18.9 Pneumonia, unspecified organism; I13.0 Hypertensive heart and chronic kidney disease with heart failure and stage 1 through stage 4 chronic kidney disease, or unspecified chronic kidney disease; K21.9 Gastro-esophageal reflux disease without esophagitis; E11.22 Type 2 diabetes mellitus with diabetic chronic kidney disease; E44.0 Moderate protein-calorie malnutrition; J44.1 Chronic obstructive pulmonary disease with (acute) exacerbation; E66.01 Morbid (severe) obesity due to excess calories; N31.9 Neuromuscular dysfunction of bladder, unspecified; N39.0 Urinary tract infection, site not specified; G89.29 Other chronic pain; J96.22 Acute and chronic respiratory failure with hypercapnia; G47.00 Insomnia, unspecified; J44.0 Chronic obstructive pulmonary disease with (acute) lower respiratory infection; N18.3 Chronic kidney disease, stage 3 (moderate); F41.9 Anxiety disorder, unspecified; T38.0X5A Adverse effect of glucocorticoids and synthetic analogues, initial encounter; B96.4 Proteus (mirabilis) (morganii) as the cause of diseases classified elsewhere; Z53.21 Procedure and treatment not carried out due to patient leaving prior to being seen by health care provider; F17.210 Nicotine dependence, cigarettes, uncomplicated; F12.90 Cannabis use, unspecified, uncomplicated; Z68.45 Body mass index [BMI] 70 or greater, adult; Q05.9 Spina bifida, unspecified; Z89.511 Acquired absence of right leg below knee; Z89.512 Acquired absence of left leg below knee; Z90.49 Acquired absence of other specified parts of digestive tract; Z88.0 Allergy status to penicillin; Z88.2 Allergy status to sulfonamides; Z88.6 Allergy status to analgesic agent; Z79.899 Other long term (current) drug therapy; Z82.49 Family history of ischemic heart disease and other diseases of the circulatory system; Z71.3 Dietary counseling and surveillance
CPT/HCPCS: 36415; 36600; 71045; 76604; 80048; 80053; 80061; 80307; 81001; 82805; 82962; 83036; 83605; 83735; 83880; 84132; 84484; 85025; 85379; 87040; 87081; 87086; 87088; 87186; 93005; 93306; 94640; 94660; 96361; 96365; 96375; 96379; 99291; J1335; J1642; J1885; J1956; J2270; J2405; J3490; J7060